=== PATIENT | male | born 1945 | race Caucasian/White ===

== ENCOUNTER 2020-01-29 10:57 | Inpatient (IN) | payer MEDICARE, SELFPAY ==
[2020-01-29] VITALS (7 sets, daily range): BP systolic 112–134; BP diastolic 61–93; PULSE 82–101; RESP 16–18; TEMP 36.6–37.1; O2SAT 86–99; BMI 24.3
--- NOTE | 2020-01-29 11:11 | XRR_ITS ---
PROCEDURE INFORMATION: Exam: XR Chest, 1 View Exam date and time: 01/29/2020 11:26 AM Age: 74 years old Clinical indication: Other: Weakness, nausea; Chest pain; Type not specified TECHNIQUE: Imaging protocol: XR of the chest Views: 1 view. COMPARISON: No relevant prior studies available. FINDINGS: Lungs: Both lungs are hyperinflated and hyperlucent suggesting COPD. No pneumonia or pulmonary edema. Pleural space: No pleural effusion or pneumothorax. Heart/Mediastinum: The cardiac silhouette is not enlarged. The mediastinal contours are normal. Bones/joints: Bilateral chronic rotator cuff tears. Degenerative changes present in both shoulders. XR/XR chest 1V portable [id number] IMPRESSION: COPD.
--- NOTE | 2020-01-29 11:12 | ECG_ITS ---
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 [facility].[email or web address]/NU/[id number] f
--- NOTE | 2020-01-29 11:27 | ED_ITS ---
HPI - Weakness General: Chief complaint: Weakness Stated complaint: N/V, WEAKNESS Time Seen by Provider: 01/29/20 11:00 History of Present Illness: HPI Narrative: This patient is a 74-year-old gentleman who presents today with weakness, nausea, diarrhea, dizziness for 3 to 4 days. He also has woken up during the night with sweats but has not checked his temperature. He has a chronic cough and shortness of breath which she says is been present for 15 years due to smoking. He denies any exposure to Covid and said that if I plan to do a Covid test with a Q-tip in the back of his head that he will refuse it. He also denies any other medical problems. He said he has been to the doctor in years because when you go to the doctor they just tell you all the things you are not supposed to do. He does have chronic joint pain from getting busted up in the past. He threw up once after eating some grapes. He said he did not eat anything else because he was so dizzy that he could not stand up to prepare anything. MD Complaint: generalized weakness, lack of energy and difficulty walking Onset (ago): day(s) (3 or 4) Duration: constant Location: generalized Migration: none Severity: moderate Associated symptoms: Reports chills, decreased appetite, diaphoresis, nausea, vomiting and other (Diarrhea, dizziness); Denies chest pain, easy bruising or headache(s) Review of Systems General: Reports: 10 or more systems reviewed and unremarkable except in HPI and below Const: Reports: chills and diaphoresis Eyes: Denies: change in vision ENMT: Denies: odynophagia Card: Denies: chest pain or swelling of feet/ankles Resp: Reports: dyspnea (Chronic due to smoking) and non-productive cough (Chronic due to smoking); Denies: productive cough GI: Reports: nausea, vomiting and diarrhea : Denies: flank pain Musc: Denies: neck pain or back pain Skin/Breast: Denies: rash Neuro: Denies: headache(s), numbness in extremities or weakness in extremities Zen/Lymph: Denies: easy bruising or easy bleeding PFS ED PFSH: Medical History (Updated 01/29/20 @ 16:50 by Leif Elam MD) COPD (chronic obstructive pulmonary disease) Poor dentition Smoking addiction Surgical History (Updated 01/29/20 @ 16:56 by Leif Elam MD) H/O wrist surgery Right --nerve injury following compression injury Family History Mother CHF (congestive heart failure) GI bleeding Father CHF (congestive heart failure) Other COPD (chronic obstructive pulmonary disease) Social History (Updated 01/29/20 @ 16:55 by Leif Elam MD) Smoking and tobacco status: current some day smoker cigarettes Packs smoked per day: 2 Years cigarettes smoked: 60 Alcohol intake: former Year of sobriety/quit date alcohol: 2015 Lives independently: Yes Current occupational status: employed Physical Exam Const: COMMON NORMALS: no acute distress, patient oriented x3, no limitations and alert GENERAL APPEARANCE: cooperative and comfortable HENMT: HEAD & SCALP: normal to inspection FACE & SINUS: normal facial exam Eye: GENERAL EYE: appearance normal, both eyes and all related structures Neck/C-Spine: COMMON NORMALS: supple, no meningeal signs and no JVD Chest: COMMONS NORMALS: normal inspection of the chest Resp: COMMON NORMALS: normal respiratory effort and No use of accessory muscles AUSCULTATION: diminished lung sounds Cardio: COMMON NORMALS: no JVD, regular rate, regular rhythm and No murmurs present (Cardio) RATE: regular rate RHYTHM: regular rhythm GI: COMMON NORMALS: Normal to inspection, nondistended, normoactive bowel sounds present, Soft to palpation and non-tender INSPECTION: Yes normal to inspection AUSCULTATION: Yes normoactive bowel sounds PALPATION: Yes Soft to palpation Back/Pelvis: COMMON NORMALS: thoracic and lumbar spine normal to inspection Extremity: COMMON NORMALS: normal to inspection Neuro: COMMON NORMALS: patient oriented x3, moves all extremities, no focal motor deficits and no sensory deficits noted SENSORIUM/ORIENTATION: Yes alert MENINGEAL SIGNS: Yes no meningeal signs Psych: COMMON NORMALS: mental status grossly normal, cooperative and normal affect Skin: COMMON NORMALS: no rashes or lesions noted and turgor normal GENERAL SKIN EXAM: no rashes or lesions noted and turgor normal Course ED course: This patient had been given Zofran and 500 mL of normal saline during transport and reported that he was feeling better already. He was sitting up on the side of the bed on my exam and did not have any dizziness. Reevaluation(s): Reevaluation #1: Based on the patient's symptoms and labs I am suspicious that he may have a bleeding ulcer. I discussed this with him and he has not seen any blood in the stool but he has been having profuse diarrhea. His daughter came in as a visitor while I was speaking with him about the results. She said he is pretty noncompliant in general as an outpatient. She also said that he never comes to the hospital and she notes that he must have been feeling extremely bad to have called the ambulance today. I had expected that he might tell me he refused to be admitted however when I suggested as a possibility he agreed. He said he still feeling extremely weak and does not feel like he could walk around and take care of himself. I think is reasonable to put him in his obsessed to recheck his hemoglobin and see if he is had a significant drop. He may or may not get endoscopy while in the hospital but he probably does need that at least as an outpatient. He also has evidence of UTI on his urine specimen and we will start some antibiotics to cover that. Vital Signs: Vital signs: Vital Signs Temperature 98.7 F 01/29/20 19:09 Pulse Rate 83 01/29/20 19:09 Respiratory Rate 18 01/29/20 19:09 Blood Pressure 134/71 01/29/20 19:09 Pulse Oximetry 98 01/29/20 19:09 MDM - Weakness Lab Data: Labs: Lab Results 01/29/20 01/29/20 01/29/20 Range/Units 11:19 11:19 11:19 WBC 12.8 H (4.0-10.0) 10^3/ uL RBC 3.14 L (4.1-5.3) 10^6/u L Hgb 9.8 L (11.7-16.6) g/dL Hct 31.1 L (42.0-52.0) % MCV 99.0 H (80-94) fL MCH 31.2 (28.0-34.0) pg MCHC 31.5 (30.0-36.0) g/dL RDW 12.8 (12.1-15.1) % Plt Count 223 (130-400) 10^3/c mm MPV 9.9 (7.4-10.4) fL Neut % (Auto) 85.1 % Lymph % (Auto) 9.5 % Saline % (Auto) 4.7 % Eos % (Auto) 0.1 % Baso % (Auto) 0.2 % Neut # (Auto) 10.88 H (1.8-7.7) 10^3/u L Lymph # (Auto) 1.2 (0.8-4.8) 10^3/u L Saline # (Auto) 0.6 (0.2-0.9) 10^3/u L Eos # (Auto) 0.0 (0.0-0.8) 10^3/u L Baso # (Auto) 0.0 (0.0-0.1) 10^3/u L Nucleated RBC % (a uto) 0 % Nucleated RBCs # 0.0 /100WBC PT 14.30 (12.1-14.9) SECO NDS INR 1.07 (0.8-1.2) D-Dimer <= 0.27 (0-0.59) ug/mIFE U Sodium 139 (136-145) mmol/L Potassium 4.5 (3.5-5.1) mmol/L Chloride 104 (98-107) mmol/L Carbon Dioxide 23 (22-29) mmol/L Anion Gap 16.5 (5-19) BUN 46 H (8-23) mg/dL Creatinine 1.0 (0.7-1.2) mg/dL GFR Calculation Not Reportable Glucose 164 H (65-115) mg/dL Calculated Osmolal ity 304 H (285-295) mOsm/k g Lactic Acid (0.5-2.2) mmol/L Calcium 8.4 L (8.5-10.5) mg/dL Magnesium 1.9 (1.7-2.3) mg/dL Total Bilirubin 0.2 (0.15-1.2) mg/dL AST 11 (0-40) U/L ALT 8 (0-41) U/L Alkaline Phosphata se 56 (40-130) IU/L Troponin T Baselin e (0-15) ng/L Troponin T 120 Min [place] (0-15) ng/L Delta Troponin T (0-10) ABS# C-Reactive Protein 3.8 (0.0-4.9) mg/L NT-Pro-B Natriuret Pep 81 (0-125) pg/mL Total Protein 5.5 L (6.6-8.7) g/dL Albumin 3.7 (3.5-5.2) g/dL Globulin 1.8 (1.3-4.6) g/dL Lipase 30 (13-60) U/L Procalcitonin 0.12 (0-0.5) ng/mL Urine Color (Yellow) Urine Appearance (CLEAR) Urine pH (5-7) Ur Specific Gravit y (1.005-1.030) Urine Protein (Negative) Urine Glucose (UA) (Normal) Urine Ketones (Negative) Urine Blood (Negative) Urine Nitrate (Negative) Urine Bilirubin (Negative) Urine Urobilinogen (Negative) mg/dL Ur Leukocyte Elizabeth ase (Negative) Urine RBC (0-2) /hpf Urine WBC (0-5) /hpf Ur Squamous Epith Cells (0-5) /hpf Amorphous Sediment Urine Bacteria (NONE) /hpf H. pylori IgG Anti body (Negative) SARS-CoV-2 Ag (Rap id) (Negative) 01/29/20 01/29/20 01/29/20 Range/Units 11:19 11:19 11:19 WBC (4.0-10.0) 10^3/ uL RBC (4.1-5.3) 10^6/u L Hgb (11.7-16.6) g/dL Hct (42.0-52.0) % MCV (80-94) fL MCH (28.0-34.0) pg MCHC (30.0-36.0) g/dL RDW (12.1-15.1) % Plt Count (130-400) 10^3/c mm MPV (7.4-10.4) fL Neut % (Auto) % Lymph % (Auto) % Saline % (Auto) % Eos % (Auto) % Baso % (Auto) % Neut # (Auto) (1.8-7.7) 10^3/u L Lymph # (Auto) (0.8-4.8) 10^3/u L Saline # (Auto) (0.2-0.9) 10^3/u L Eos # (Auto) (0.0-0.8) 10^3/u L Baso # (Auto) (0.0-0.1) 10^3/u L Nucleated RBC % (a uto) % Nucleated RBCs # /100WBC PT (12.1-14.9) SECO NDS INR (0.8-1.2) D-Dimer (0-0.59) ug/mIFE U Sodium (136-145) mmol/L Potassium (3.5-5.1) mmol/L Chloride (98-107) mmol/L Carbon Dioxide (22-29) mmol/L Anion Gap (5-19) BUN (8-23) mg/dL Creatinine (0.7-1.2) mg/dL GFR Calculation Glucose (65-115) mg/dL Calculated Osmolal ity (285-295) mOsm/k g Lactic Acid 1.8 (0.5-2.2) mmol/L Calcium (8.5-10.5) mg/dL Magnesium (1.7-2.3) mg/dL Total Bilirubin (0.15-1.2) mg/dL AST (0-40) U/L ALT (0-41) U/L Alkaline Phosphata se (40-130) IU/L Troponin T Baselin e 8 (0-15) ng/L Troponin T 120 Min [place] (0-15) ng/L Delta Troponin T (0-10) ABS# C-Reactive Protein (0.0-4.9) mg/L NT-Pro-B Natriuret Pep (0-125) pg/mL Total Protein (6.6-8.7) g/dL Albumin (3.5-5.2) g/dL Globulin (1.3-4.6) g/dL Lipase (13-60) U/L Procalcitonin (0-0.5) ng/mL Urine Color (Yellow) Urine Appearance (CLEAR) Urine pH (5-7) Ur Specific Gravit y (1.005-1.030) Urine Protein (Negative) Urine Glucose (UA) (Normal) Urine Ketones (Negative) Urine Blood (Negative) Urine Nitrate (Negative) Urine Bilirubin (Negative) Urine Urobilinogen (Negative) mg/dL Ur Leukocyte Elizabeth ase (Negative) Urine RBC (0-2) /hpf Urine WBC (0-5) /hpf Ur Squamous Epith Cells (0-5) /hpf Amorphous Sediment Urine Bacteria (NONE) /hpf H. pylori IgG Anti body Negative (Negative) SARS-CoV-2 Ag (Rap id) (Negative) 01/29/20 01/29/20 01/29/20 Range/Units 11:30 11:51 13:10 WBC (4.0-10.0) 10^3/ uL RBC (4.1-5.3) 10^6/u L Hgb (11.7-16.6) g/dL Hct (42.0-52.0) % MCV (80-94) fL MCH (28.0-34.0) pg MCHC (30.0-36.0) g/dL RDW (12.1-15.1) % Plt Count (130-400) 10^3/c mm MPV (7.4-10.4) fL Neut % (Auto) % Lymph % (Auto) % Saline % (Auto) % Eos % (Auto) % Baso % (Auto) % Neut # (Auto) (1.8-7.7) 10^3/u L Lymph # (Auto) (0.8-4.8) 10^3/u L Saline # (Auto) (0.2-0.9) 10^3/u L Eos # (Auto) (0.0-0.8) 10^3/u L Baso # (Auto) (0.0-0.1) 10^3/u L Nucleated RBC % (a uto) % Nucleated RBCs # /100WBC PT (12.1-14.9) SECO NDS INR (0.8-1.2) D-Dimer (0-0.59) ug/mIFE U Sodium (136-145) mmol/L Potassium (3.5-5.1) mmol/L Chloride (98-107) mmol/L Carbon Dioxide (22-29) mmol/L Anion Gap (5-19) BUN (8-23) mg/dL Creatinine (0.7-1.2) mg/dL GFR Calculation Glucose (65-115) mg/dL Calculated Osmolal ity (285-295) mOsm/k g Lactic Acid (0.5-2.2) mmol/L Calcium (8.5-10.5) mg/dL Magnesium (1.7-2.3) mg/dL Total Bilirubin (0.15-1.2) mg/dL AST (0-40) U/L ALT (0-41) U/L Alkaline Phosphata se (40-130) IU/L Troponin T Baselin e (0-15) ng/L Troponin T 120 Min [place] 9.16 (0-15) ng/L Delta Troponin T 1.16 (0-10) ABS# C-Reactive Protein (0.0-4.9) mg/L NT-Pro-B Natriuret Pep (0-125) pg/mL Total Protein (6.6-8.7) g/dL Albumin (3.5-5.2) g/dL Globulin (1.3-4.6) g/dL Lipase (13-60) U/L Procalcitonin (0-0.5) ng/mL Urine Color Yellow (Yellow) Urine Appearance Clear (CLEAR) Urine pH 5 (5-7) Ur Specific Gravit y 1.020 (1.005-1.030) Urine Protein Neg (Negative) Urine Glucose (UA) Norm (Normal) Urine Ketones Negative (Negative) Urine Blood Neg (Negative) Urine Nitrate Negative (Negative) Urine Bilirubin 1+ H (Negative) Urine Urobilinogen Norm (Negative) mg/dL Ur Leukocyte Elizabeth ase 2+ H (Negative) Urine RBC None (0-2) /hpf Urine WBC 15-25 H (0-5) /hpf Ur Squamous Epith Cells 0-4 H (0-5) /hpf Amorphous Sediment Not Reportable Urine Bacteria 1+ H (NONE) /hpf H. pylori IgG Anti body (Negative) SARS-CoV-2 Ag (Rap id) Negative (Negative) Discharge Plan Discharge Patient Disposition: Placed in Observation Admit Provider: Manpreet Beatty Clinical Impression: Acute UTI, Acute upper gastrointestinal bleeding Anemia Qualifiers: Anemia type: unspecified type Qualified Code(s): D64.9 - Anemia, unspecified Coding Level of Care Code ED Staff Physical Therapy Assistant for [facility] Fwd Exam Comprehensive
[2020-01-29 11:34] LABS: Basophils % 0.2 %; Eosinophils % 0.1 %; Hematocrit 31.1 % (42.0-52.0); Hemoglobin 9.8 g/dL (11.7-16.6); Lymphocytes # 1.2 10^3/uL (0.8-4.8); Lymphocytes % 9.5 %; Mean Corpuscular HGB Conc 31.5 g/dL (30.0-36.0); Mean Corpuscular Hemoglobin 31.2 pg (28.0-34.0); Mean Platelet Volume 9.9 fL (7.4-10.4); Monocytes # 0.6 10^3/uL (0.2-0.9); Monocytes % 4.7 %; Neutrophils # 10.88 10^3/uL (1.8-7.7); Neutrophils % 85.1 %; Nucleated Red Blood Cells % 0 %; Platelet Count 223 10^3/cmm (130-400); Red Blood Count 3.14 10^6/uL (4.1-5.3); Red Cell Distribution Width 12.8 % (12.1-15.1); White Blood Count 12.8 10^3/uL (4.0-10.0)
[2020-01-29] MEDS: sodium chloride 0.9% 1,000 ML 999 ML IV (11:40)
[2020-01-29 11:54] LABS: INR 1.07 (0.8-1.2)
[2020-01-29 11:57] LABS: D Dimer <= 0.27 ug/mIFEU (0-0.59)
[2020-01-29 12:01] LABS: Troponin(5th) Baseline 8 ng/L (0-15)
[2020-01-29 12:03] LABS: SARS Covid-2 Antigen Negative (Negative)
[2020-01-29 12:03] LABS: Lactic Sepsis W/Reflex 1.8 mmol/L (0.5-2.2)
[2020-01-29 12:08] LABS: NT Pro B Type Natriuretic Pept 81 pg/mL (0-125); Procalcitonin 0.12 ng/mL (0-0.5)
[2020-01-29 12:15] LABS: Urine Appearance Clear (CLEAR); Urine Color Yellow (Yellow); pH Urine 5 (5-7)
[2020-01-29 12:16] LABS: Add Urine Microscopic? YES; Bilirubin Urine 1+ (Negative); Blood Urine Neg (Negative); Glucose Urine UA Norm (Normal); Ketones Urine Negative (Negative); Leukocyte Esterase Urine 2+ (Negative); Nitrate Urine Negative (Negative); Protein Urine Neg (Negative); Urobilinogen Urine Norm (Negative)
[2020-01-29 12:17] LABS: Add Urine Culture? Yes; Bacteria Urine 1+ /hpf; Squamous Epithelial Cell Urine 0-4 /hpf (0-5); WBC Urine 15-25 /hpf (0-5)
[2020-01-29 12:20] LABS: Alanine Aminotransferase 8 U/L (0-41); Albumin Level 3.7 g/dL (3.5-5.2); Alkaline Phosphatase 56 IU/L (40-130); Anion Gap 16.5 (5-19); Aspartate Amino Transferase 11 U/L (0-40); Blood Urea Nitrogen 46 mg/dL (8-23); C Reactive Protein 3.8 mg/L (0.0-4.9); Calcium 8.4 mg/dL (8.5-10.5); Carbon Dioxide 23 mmol/L (22-29); Chloride 104 mmol/L (98-107); Creatinine Clr Calc Pharmacy 77.9742; Globulin 1.8 g/dL (1.3-4.6); Glucose 164 mg/dL (65-115); Lipase 30 U/L (13-60); Magnesium 1.9 mg/dL (1.7-2.3); Osmolality Calculated 304 mOsm/kg (285-295); Potassium 4.5 mmol/L (3.5-5.1); Sodium 139 mmol/L (136-145); Total Bilirubin 0.2 mg/dL (0.15-1.2); Total Protein 5.5 g/dL (6.6-8.7)
--- NOTE | 2020-01-29 13:12 | ECG_ITS ---
[facility] Test Date: 2020-01-29 Pat Name: Carlos Bernabe Department: Room: 255 Gender: Male Audience Coordinator: : 1945 Requested By: Pati Wiggins Order Number: [id number] Reading MD: TRAN COOLEY Measurements Intervals [place] Rate: 72 P: 90 CA: 174 QRS: 77 QRSD: 73 T: 26 QT: 356 QTc: 391 Interpretive Statements SINUS RHYTHM WITH OCCASIONAL SUPRAVENTRICULAR PREMATURE COMPLEXES MODERATE T-WAVE ABNORMALITY, CONSIDER INFERIOR ISCHEMIA [-0.1+ mV T WAVE IN II/aVF] Compared to ECG 01/29/2020 11:23:52 Possible ischemia now present T-wave abnormality still present Electronically Signed On 01-29-2020 17:32:31 STUDENT FINANCIAL AID MANAGER by TRAN COOLEY [id number]
[2020-01-29] MEDS: pantoprazole 40 mg SDV 80 MG IVP (13:33)
[2020-01-29] MEDS: cefTRIAXone 1,000 MG in sodium chloride 0.9% (plus) 50 ML 100 MG IV (13:33)
[2020-01-29] MEDS: nicotine 21 mg Patch 1 PATCH TRANSDERMA (13:33)
[2020-01-29 13:37] LABS: Troponin 5 2HR 9.16 ng/L (0-15); Troponin 5 2HR Delta 1.16 ABS# (0-10)
--- NOTE | 2020-01-29 14:32 | PC.NURSE ---
pt report called to Sondra VIERA in SBAR format.
--- NOTE | 2020-01-29 14:49 | P.HP_ITS ---
Providers/Chief Complaint Admitting Physician: Manpreet Beatty Chief Complaint: N/V, WEAKNESS History of Present Illness Carlos Bernabe is a pleasant 74 year old gentleman who does not have much PMH, but also has not seen a doctor in over 20 years, presented to ER feeling weak, dizzy on standing up after about 3 days of diarrhea which on questioning he reports was black. He reports one episode of vomiting after eating some grapes. He states he was feeling malaise and feeling cold/chills during that time. He ever having upper or lower endoscopy. He is a long-term smoker, 2 packs/day, and reportedly was smoking for the last 60 years. In ER he is noted afebrile, with minimal leukocytosis, also with new anemia, hemoglobin 9.8, with elevated BUN, normal creatinine. Incidentally noted UTI. He denies fever at home. A week ago had a swollen cheek on the R side with a painful tooth. This is resolving. Denies taking any antibiotics. Denies fever, sore throat, headache, cough or shortness of breath other than chronic from smoking. Rapid covid test in ER is negative. He denies ASA use. Does not take NSAIDs. Took tylenol for pain for his tooth. He does state has history of easy bruising, although liver parameters and INR are normal. He states that today is the first time he has had no diarrhea. Review of Systems Const: Reports: other (dizziness); Denies: fever(s), chills, body aches or malaise Eyes: Denies: change in vision or eye redness ENMT: Denies: throat pain, oral sores or ear or mastoid pain Card: Denies: chest pain, edema, pre-syncope or dyspnea on exertion Resp: Denies: dyspnea, productive cough, change in phlegm color or hemoptysis GI: Reports: nausea, diarrhea and melena; Denies: abdominal pain, vomiting, constipation or hematochezia : Denies: flank pain, difficulty urinating, urinary frequency or hematuria Musc: Denies: back pain, joint swelling or joint redness Skin/Breast: Denies: rash, sores or new lesions Neuro: Denies: headache(s), numbness in extremities, weakness in extremities, dizziness, confusion or seizure-like activity Endo: Denies: polyuria or polydipsia Zen/Lymph: Denies: easy bleeding or purpura All/Imm: Denies: urticaria, throat swelling or tongue swelling Medications/Allergies Home Medications Medication Instructions Recorded Confirmed Last Taken Type acetaminophen [Tylenol Extra 1,000 mg PO PRN 01/29/20 01/29/20 01/29/20 History Strength] guaifenesin [Mucinex] 600 - 1,200 mg PO PRN 01/29/20 01/29/20 01/29/20 History Allergies Allergy/AdvReac Type Severity Reaction Status Date / Time No Known Allergies Allergy Verified 01/29/20 13:27 PFSH Acute PFSH: Medical History Poor dentition Smoking addiction Surgical History H/O wrist surgery Family History Mother CHF (congestive heart failure) GI bleeding Father CHF (congestive heart failure) Other COPD (chronic obstructive pulmonary disease) Social History Smoking and tobacco status: current some day smoker cigarettes Packs smoked per day: 2 Years cigarettes smoked: 60 Alcohol intake: former Lives independently: Yes Current occupational status: employed Vitals/I&O/Wt Last Vital Signs Temp 97.9 F 01/29/20 10:58 Pulse 87 01/29/20 14:09 Resp 18 01/29/20 14:09 BP 116/82 01/29/20 14:09 Pulse Ox 99 01/29/20 14:09 Weight last 48 hrs Weight 86.183 kg Physical Exam Const: COMMON NORMALS: no acute distress and patient oriented x3 HENMT: COMMON NORMALS: oropharynx normal Neck/C-Spine: COMMON NORMALS: no JVD Resp: COMMON NORMALS: normal respiratory effort and clear to auscultation bilaterally AUSCULTATION: clear to auscultation bilaterally Cardio: COMMON NORMALS: no JVD, regular rhythm, S1 normal heart sound present, S2 normal heart sound present and No murmurs present (Cardio) RHYTHM: regular rhythm HEART SOUNDS: S1 normal heart sound present and S2 normal heart sound present GI: COMMON NORMALS: Normal to inspection, nondistended, normoactive bowel sounds present, Soft to palpation and non-tender PALPATION: Yes Soft to palpation Extremity: COMMON NORMALS: no joint enlargement and no pedal edema Neuro: COMMON NORMALS: patient oriented x3 and moves all extremities Skin: COMMON NORMALS: no rashes or lesions noted GENERAL SKIN EXAM: no rashes or lesions noted Data : 01/29/20 11:19 01/29/20 11:19 A&P Assessment and plan (1) Anemia: Possible acute blood loss anemia, with melanotic stools. Recheck hemoglobin. As below. Status: Acute Qualifiers: Anemia type: unspecified type Qualified Code(s): D64.9 - Anemia, unspecified (2) Acute upper gastrointestinal bleeding: Reported 3 days diarrhea. However, melanotic stools. Some nausea. Orthostatic symptoms. He is afebrile. Does have minimal leukocytosis, although did have one episode of vomiting. At this time cannot entirely rule out gastroenteritis or colitis, however, suspicion is more so for GI bleeding with diarrhea secondary to cathartic effect. Discussed concern with him his daughter regarding longstanding smoking history, and risk of cancer. Daughter is concerned that if he is discharged from the hospital that he will not follow-up as he has not seen a doctor probably in about 20 years. Previously also reportedly had finger reattachment surgery left hand after severed digits check to be done in office due to otherwise poor compliance as per report by the patient's daughter. We will monitor hemoglobin. Start PPI. He does not take NSAIDs or aspirin. Does have easy bruising. INR is normal, and liver parameters are normal. Does not drink alcohol. He is agreeable for upper and lower endoscopy if this were needed. Appreciate surgical consultation. Collect stool studies if having further stools. Check H. pylori. Status: Acute (3) Acute UTI: Rocephin. Follow-up urine culture. He does have leukocytosis, heart rate for the most part normal, although I do see 101 currently. Will monitor. At this time not suspected to have sepsis. Will check ultrasound for any obstruction. Status: Acute (4) Smoking addiction: Discussed multiple risks with continued smoking. We discussed smoking cessation for about 4 minutes with both him and his daughter. He is not ready t o quit or even to consider quitting. Status: Acute (5) Poor dentition: He is making appointment with a dentist. Had what sounds like peritonitis a week ago which appears to be resolving currently. Status: Acute (6) Diarrhea: As above. Status: Acute Attestations Medical Necessity Statement*: Place in observation. 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
--- NOTE | 2020-01-29 15:18 | PC.NURSE ---
Pts nurse was i there
--- NOTE | 2020-01-29 15:27 | US_ITS ---
WS: [id number] ULTRASOUND RENAL TECHNIQUE: Ultrasound examination of both kidneys. CLINICAL INFORMATION: check for any urinary obnstruction COMPARISON: None. FINDINGS: RIGHT: Right kidney is normal in size and appearance. Echogenicity: Normal Hydronephrosis: None. Perinephric fluid: None. Right kidney measures: 8.9 cm x 4.7 cm x 4.7 cm. LEFT: Left kidney is normal in size and appearance. Echogenicity: Normal. Hydronephrosis: None. Perinephric fluid: None. Left kidney measures: 10.3cm x 4.9 cm x 5.8 cm. Normal visualized aorta. Bladder is decompressed. US/US renal BI* [id number] IMPRESSION: Normal renal ultrasound
[2020-01-29 16:16] LABS: H. Pylori IgG Antibody Negative (Negative)
--- NOTE | 2020-01-29 16:50 | PM.CONSULT ---
Providers/Reason For Consult Consulting Physican/Specialty*: General Surgery Leif Elam MD Reason for Consult*: Melena, anemia. Attending Physician: Manpreet Beatty History of Present Illness History of Present Illness Carlos Bernabe is a 74 year old male who says he began getting sick about 36 hours ago. He describes some nausea, dizziness and weakness associated with some loose stool. He says his stools have been very black ever since he started having his other symptoms. He was not having any significant abdominal pain. He eventually presented to the emergency department and was found to be somewhat anemic. Given his melanotic appearing stool, Dr. Beatty asked me to talk to him about endoscopy, which she has never had before. He denies any known family history of upper or lower GI neoplasia, but says that his mother had a history of bad ulcers. He has never been diagnosed with ulcer disease in the past, but freely admits he has not seen a physician for over 20 years. He denies any regular NSAID use. He does drink quite a bit of caffeine and smokes a lot of cigarettes. Review of Systems General: Reports: 10 or more systems reviewed and unremarkable except in HPI and below Const: Denies: fever(s) ENMT: Reports: other ( Bad teeth ) GI: Reports: nausea, vomiting (X1) and melena; Denies: abdominal pain or hematemesis Neuro: Reports: dizziness Meds/Allergies Home Medications and Allergies Home Medications Medication Instructions Recorded Confirmed Last Taken Type acetaminophen [Tylenol Extra 1,000 mg PO PRN 01/29/20 01/29/20 01/29/20 History Strength] guaifenesin [Mucinex] 600 - 1,200 mg PO PRN 01/29/20 01/29/20 01/29/20 History Allergies Allergy/AdvReac Type Severity Reaction Status Date / Time No Known Allergies Allergy Verified 01/29/20 13:27 PFSH Acute PFSH: Medical History (Updated 01/29/20 @ 16:50 by Leif Elam MD) COPD (chronic obstructive pulmonary disease) Poor dentition Smoking addiction Surgical History (Updated 01/29/20 @ 16:56 by Leif Elam MD) H/O wrist surgery Right --nerve injury following compression injury Family History Mother CHF (congestive heart failure) GI bleeding Father CHF (congestive heart failure) Other COPD (chronic obstructive pulmonary disease) Social History (Updated 01/29/20 @ 16:55 by Leif Elam MD) Smoking and tobacco status: current some day smoker cigarettes Packs smoked per day: 2 Years cigarettes smoked: 60 Alcohol intake: former Year of sobriety/quit date alcohol: 2015 Lives independently: Yes Current occupational status: employed Vitals/I&O/Wt Last Vital Signs Temp 97.8 F 01/29/20 16:00 Pulse 101 H 01/29/20 16:00 Resp 16 01/29/20 16:00 BP 133/61 01/29/20 16:00 Pulse Ox 93 01/29/20 16:00 Weight last 48 hrs Weight 190 lb Physical Exam Narrative: EXAM NARRATIVE: The patient was encountered in his hospital room. He does not appear to be in any distress. The pupils are equal. The dentition is poor. The neck reveals no obvious bruits. The lungs are clear anteriorly. The heart is regular. The abdomen reveals some bowel sounds and is soft with no appreciable tenderness. No obvious masses are palpated. The extremities reveal no edema. Neurologically the patient appears to be grossly intact. A&P Assessment and plan (1) Melena: Status: Acute (2) Anemia: I have discussed the patient's melanotic stool and his anemia with him. We discussed upper and lower GI sources of bleeding. After discussing an EGD, he says he would be willing to proceed with that. I will arrange for an EGD tomorrow morning. Status: Acute Qualifiers: Anemia type: unspecified type Qualified Code(s): D64.9 - Anemia, unspecified Consult Attestations Medical Necessity Statement: See admitting service's notation. Coding Level of Care Code Acute Supervisor Telephone Answering Service for [facility] Fwd Diagnoses Melena K92.1 Anemia D64.9 Anemia type: unspecified type
--- NOTE | 2020-01-29 16:58 | PC.RESP ---
Smoking Cessation and Pulmonary Rehab information sent to patient.
[2020-01-29 17:21] LABS: Hemoglobin 8.5 g/dL (11.7-16.6)
[2020-01-29 18:05] LABS: Troponin 5 6HR 9.98 ng/L (0-15); Troponin 5 6HR Delta 1.98 ng/L (0-12)
[2020-01-29] MEDS: pantoprazole 40 mg SDV IVP (21:50)
[2020-01-30] VITALS (16 sets, daily range): BP systolic 90–143; BP diastolic 48–78; PULSE 63–83; RESP 14–20; TEMP 36.3–37.1; O2SAT 93–100
[2020-01-30 05:26] LABS: Basophils # 0.1 10^3/uL (0.0-0.1); Basophils % 0.5 %; Eosinophils # 0.2 10^3/uL (0.0-0.8); Eosinophils % 1.7 %; Hematocrit 23.2 % (42.0-52.0); Hemoglobin 7.5 g/dL (11.7-16.6); Lymphocytes # 1.8 10^3/uL (0.8-4.8); Lymphocytes % 18.3 %; Mean Corpuscular HGB Conc 32.3 g/dL (30.0-36.0); Mean Corpuscular Hemoglobin 31.1 pg (28.0-34.0); Mean Corpuscular Volume 96.3 fL (80-94); Mean Platelet Volume 9.7 fL (7.4-10.4); Monocytes # 0.9 10^3/uL (0.2-0.9); Monocytes % 8.6 %; Neutrophils # 6.97 10^3/uL (1.8-7.7); Neutrophils % 70.5 %; Nucleated Red Blood Cells % 0 %; Platelet Count 163 10^3/cmm (130-400); Red Blood Count 2.41 10^6/uL (4.1-5.3); Red Cell Distribution Width 12.9 % (12.1-15.1); White Blood Count 9.9 10^3/uL (4.0-10.0)
[2020-01-30 06:01] LABS: Alanine Aminotransferase 6 U/L (0-41); Albumin Level 3.2 g/dL (3.5-5.2); Alkaline Phosphatase 47 IU/L (40-130); Anion Gap 13.2 (5-19); Aspartate Amino Transferase 10 U/L (0-40); Blood Urea Nitrogen 30 mg/dL (8-23); Calcium 8.2 mg/dL (8.5-10.5); Carbon Dioxide 27 mmol/L (22-29); Chloride 104 mmol/L (98-107); Creatinine Clr Calc Pharmacy 77.9742; Globulin 1.8 g/dL (1.3-4.6); Glucose 122 mg/dL (65-115); Osmolality Calculated 297 mOsm/kg (285-295); Potassium 4.2 mmol/L (3.5-5.1); Sodium 140 mmol/L (136-145); Total Bilirubin 0.3 mg/dL (0.15-1.2)
--- NOTE | 2020-01-30 06:20 | PC.NURSE ---
SHIFT SUMMARY Did not sleep much tonight. No c/o offered. No BM's this shift. NPO after midnight for EGD this am and GI Lab staff just here to take to OP via wheelchair.
[2020-01-30] MEDS: sodium chloride 0.9% 1,000 ML 30 ML IV (06:23)
--- NOTE | 2020-01-30 06:40 | ANES.PREANE2 ---
Pre-Anesthetic Assessment Pre-Anesthetic Assessment: Height/Weight: Height 1.88 m Weight 86.183 kg Temp Pulse Resp BP Pulse Ox 98.6 F 83 18 143/69 100 01/30/20 06:18 01/30/20 06:18 01/30/20 06:18 01/30/20 06:18 01/30/20 06:18 Preop Diagnosis: GI bleed Proposed Procedure: Operation Date: 01/30/20 07:30 Proposed Procedures p EGD(Not Applicable) - Leif Elam MD Familial anesthetic complications: None Was Beta Nayeli taken within 24 hours: N/A Last intake: NPO > 8 hrs Social: Social History: Tobacco, No alcohol and No tobacco Exam: Pre-Anes Outpt Exam: alert, oriented x 3, clear to auscultation bilaterally and regular rate & rhythm Additional Exam Findings (including area of procedure): coarse breath sounds Airway: Cervical ROM: WNL MP: 3 Dentition: Other (very poor dentition - multiple rotting teeth, he pulled one himself on wednesday) Pulmonary: Pulmonary: COPD CV/HEM: CV/HEM: Anemia (acute) Comments: METS > 4, 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 Anesthetic Plan: ASA status: 3 Anesthesia: MAC Other: Will order prbcs 1 unit Risk of > 500 ml blood loss (7ml/kg in children): No Meds/Allergies Current Medications: Current Medications Generic Name Dose Route Start Last Admin Trade Name Freq PRN Reason Stop Dose Admin Sodium Chloride 1,000 mls @ 30 ml s/hr 01/30/20 06:15 01/30/20 06:23 Sodium Chloride 0.9% IV 01/31/20 06:14 30 mls/hr .Q24H JOVAN Administration Pantoprazole Sodiu m 40 mg 01/29/20 22:00 01/29/20 21:50 Pantoprazole 40 Mg Sdv IVP 40 mg Q12H JOVAN Administration PFSH Anesthesia PFSH: Medical History (Updated 01/29/20 @ 16:50 by Leif Elam MD) COPD (chronic obstructive pulmonary disease) Poor dentition Smoking addiction Surgical History (Updated 01/29/20 @ 16:56 by Leif Elam MD) H/O wrist surgery Right --nerve injury following compression injury Family History Mother CHF (congestive heart failure) GI bleeding Father CHF (congestive heart failure) Other COPD (chronic obstructive pulmonary disease) Social History (Updated 01/29/20 @ 16:55 by Leif Elam MD) Smoking and tobacco status: current some day smoker cigarettes Packs smoked per day: 2 Years cigarettes smoked: 60 Alcohol intake: former Year of sobriety/quit date alcohol: 2015 Lives independently: Yes Current occupational status: employed Data Anesthesia CBC & Chem 7: 01/30/20 04:39 01/30/20 04:39 Other Labs: Laboratory Results - last 48 hr 01/29/20 01/29/20 01/29/20 11:19 11:19 11:19 WBC 12.8 H RBC 3.14 L Hgb 9.8 L Hct 31.1 L MCV 99.0 H MCH 31.2 MCHC 31.5 RDW 12.8 Plt Count 223 MPV 9.9 Neut % (Auto) 85.1 Lymph % (Auto) 9.5 [place] % (Auto) 4.7 Eos % (Auto) 0.1 Baso % (Auto) 0.2 Neut # (Auto) 10.88 H Lymph # (Auto) 1.2 [place] # (Auto) 0.6 Eos # (Auto) 0.0 Baso # (Auto) 0.0 Nucleated RBC % (auto) 0 Nucleated RBCs # 0.0 PT 14.30 INR 1.07 D-Dimer <= 0.27 Sodium 139 Potassium 4.5 Chloride 104 Carbon Dioxide 23 Anion Gap 16.5 BUN 46 H Creatinine 1.0 GFR Calculation Not Reportable Glucose 164 H Calculated Osmolality 304 H Lactic Acid Calcium 8.4 L Magnesium 1.9 Total Bilirubin 0.2 AST 11 ALT 8 Alkaline Phosphatase 56 Troponin T Baseline Troponin T 120 Minute Delta Troponin T Troponin T Hi Sens 6Hr Troponin T Hi Sens 6Hr Delta C-Reactive Protein 3.8 NT-Pro-B Natriuret Pep 81 Total Protein 5.5 L Albumin 3.7 Globulin 1.8 Lipase 30 Procalcitonin 0.12 Urine Color Urine Appearance Urine pH Ur Specific [place] Urine Protein Urine Glucose (UA) Urine Ketones Urine Blood Urine Nitrate Urine Bilirubin Urine Urobilinogen Ur Leukocyte Esterase Urine RBC Urine WBC Ur Squamous Epith Cells Amorphous Sediment Urine Bacteria H. pylori IgG Antibody SARS-CoV-2 Ag (Rapid) 01/29/20 01/29/20 01/29/20 11:19 11:19 11:19 WBC RBC Hgb Hct MCV MCH MCHC RDW Plt Count MPV Neut % (Auto) Lymph % (Auto) [place] % (Auto) Eos % (Auto) Baso % (Auto) Neut # (Auto) Lymph # (Auto) [place] # (Auto) Eos # (Auto) Baso # (Auto) Nucleated RBC % (auto) Nucleated RBCs # PT INR D-Dimer Sodium Potassium Chloride Carbon Dioxide Anion Gap BUN Creatinine GFR Calculation Glucose Calculated Osmolality Lactic Acid 1.8 Calcium Magnesium Total Bilirubin AST ALT Alkaline Phosphatase Troponin T Baseline 8 Troponin T 120 Minute Delta Troponin T Troponin T Hi Sens 6Hr Troponin T Hi Sens 6Hr Delta C-Reactive Protein NT-Pro-B Natriuret Pep Total Protein Albumin Globulin Lipase Procalcitonin Urine Color Urine Appearance Urine pH Ur Specific [place] Urine Protein Urine Glucose (UA) Urine Ketones Urine Blood Urine Nitrate Urine Bilirubin Urine Urobilinogen Ur Leukocyte Esterase Urine RBC Urine WBC Ur Squamous Epith Cells Amorphous Sediment Urine Bacteria H. pylori IgG Antibody Negative SARS-CoV-2 Ag (Rapid) 01/29/20 01/29/20 01/29/20 11:30 11:51 13:10 WBC RBC Hgb Hct MCV MCH MCHC RDW Plt Count MPV Neut % (Auto) Lymph % (Auto) [place] % (Auto) Eos % (Auto) Baso % (Auto) Neut # (Auto) Lymph # (Auto) [place] # (Auto) Eos # (Auto) Baso # (Auto) Nucleated RBC % (auto) Nucleated RBCs # PT INR D-Dimer Sodium Potassium Chloride Carbon Dioxide Anion Gap BUN Creatinine GFR Calculation Glucose Calculated Osmolality Lactic Acid Calcium Magnesium Total Bilirubin AST ALT Alkaline Phosphatase Troponin T Baseline Troponin T 120 Minute 9.16 Delta Troponin T 1.16 Troponin T Hi Sens 6Hr Troponin T Hi Sens 6Hr Delta C-Reactive Protein NT-Pro-B Natriuret Pep Total Protein Albumin Globulin Lipase Procalcitonin Urine Color Yellow Urine Appearance Clear Urine pH 5 Ur Specific [place] 1.020 Urine Protein Neg Urine Glucose (UA) Norm Urine Ketones Negative Urine Blood Neg Urine Nitrate Negative Urine Bilirubin 1+ H Urine Urobilinogen Norm Ur Leukocyte Esterase 2+ H Urine RBC None Urine WBC 15-25 H Ur Squamous Epith Cells 0-4 H Amorphous Sediment Not Reportable Urine Bacteria 1+ H H. pylori IgG Antibody SARS-CoV-2 Ag (Rapid) Negative 01/29/20 01/29/20 01/30/20 17:00 17:00 04:39 WBC 9.9 RBC 2.41 L Hgb 8.5 L 7.5 L Hct 23.2 L MCV 96.3 H MCH 31.1 MCHC 32.3 RDW 12.9 Plt Count 163 MPV 9.7 Neut % (Auto) 70.5 Lymph % (Auto) 18.3 [place] % (Auto) 8.6 Eos % (Auto) 1.7 Baso % (Auto) 0.5 Neut # (Auto) 6.97 Lymph # (Auto) 1.8 [place] # (Auto) 0.9 Eos # (Auto) 0.2 Baso # (Auto) 0.1 Nucleated RBC % (auto) 0 Nucleated RBCs # 0.0 PT INR D-Dimer Sodium Potassium Chloride Carbon Dioxide Anion Gap BUN Creatinine GFR Calculation Glucose Calculated Osmolality Lactic Acid Calcium Magnesium Total Bilirubin AST ALT Alkaline Phosphatase Troponin T Baseline Troponin T 120 Minute Delta Troponin T Troponin T Hi Sens 6Hr 9.98 Troponin T Hi Sens 6Hr Delta 1.98 C-Reactive Protein NT-Pro-B Natriuret Pep Total Protein Albumin Globulin Lipase Procalcitonin Urine Color Urine Appearance Urine pH Ur Specific [place] Urine Protein Urine Glucose (UA) Urine Ketones Urine Blood Urine Nitrate Urine Bilirubin Urine Urobilinogen Ur Leukocyte Esterase Urine RBC Urine WBC Ur Squamous Epith Cells Amorphous Sediment Urine Bacteria H. pylori IgG Antibody SARS-CoV-2 Ag (Rapid) 01/30/20 04:39 WBC RBC Hgb Hct MCV MCH MCHC RDW Plt Count MPV Neut % (Auto) Lymph % (Auto) [place] % (Auto) Eos % (Auto) Baso % (Auto) Neut # (Auto) Lymph # (Auto) [place] # (Auto) Eos # (Auto) Baso # (Auto) Nucleated RBC % (auto) Nucleated RBCs # PT INR D-Dimer Sodium 140 Potassium 4.2 Chloride 104 Carbon Dioxide 27 Anion Gap 13.2 BUN 30 H Creatinine 1.0 GFR Calculation Not Reportable Glucose 122 H Calculated Osmolality 297 H Lactic Acid Calcium 8.2 L Magnesium Total Bilirubin 0.3 AST 10 ALT 6 Alkaline Phosphatase 47 Troponin T Baseline Troponin T 120 Minute Delta Troponin T Troponin T Hi Sens 6Hr Troponin T Hi Sens 6Hr Delta C-Reactive Protein NT-Pro-B Natriuret Pep Total Protein 5.0 L Albumin 3.2 L Globulin 1.8 Lipase Procalcitonin Urine Color Urine Appearance Urine pH Ur Specific [place] Urine Protein Urine Glucose (UA) Urine Ketones Urine Blood Urine Nitrate Urine Bilirubin Urine Urobilinogen Ur Leukocyte Esterase Urine RBC Urine WBC Ur Squamous Epith Cells Amorphous Sediment Urine Bacteria H. pylori IgG Antibody SARS-CoV-2 Ag (Rapid) Cardiac Studies: No Data to Display
--- NOTE | 2020-01-30 07:03 | PM.PN ---
Subjective Subjective: Interval history: The patient has had no further bowel movement since I saw him yesterday. He still slightly dizzy when he gets up to move around. He denies any new abdominal symptoms. He has no questions about the EGD this morning. Vitals/I&O/Wt Last Vital Signs Temp 98.6 F 01/30/20 06:18 Pulse 83 01/30/20 06:18 Resp 18 01/30/20 06:18 BP 143/69 01/30/20 06:18 Pulse Ox 100 01/30/20 06:18 01/29/20 01/30/20 01/30/20 22:59 06:59 14:59 Intake Total 360 / 560 200 / 560 Output Total 150 / 550 400 / 550 Balance 210 / 10 -200 / 10 Weight last 48 hrs Weight 190 lb Physical Exam Narrative: EXAM NARRATIVE: Abdomen unchanged. Data : 01/30/20 04:39 01/30/20 04:39 A&P Assessment and plan (1) Melena: No further bowel movements since I talked to the patient yesterday. His hemoglobin has drifted, but I suspect most of this is delusional from rehydration. My understanding is a unit of PRBCs has been ordered for transfusion. Status: Acute (2) Anemia: EGD this morning. Status: Acute Qualifiers: Anemia type: unspecified type Qualified Code(s): D64.9 - Anemia, unspecified Attestations Medical Necessity Statement*: See admitting service's notation. Coding Level of Care Code Acute Gas Tester for [facility] Diagnoses Melena K92.1 Anemia D64.9 Anemia type: unspecified type
[2020-01-30] MEDS: pantoprazole 40 mg SDV IVP ×2 (08:06→21:37)
[2020-01-30] MEDS: nicotine 21 mg Patch 1 PATCH TRANSDERMA (08:26)
--- NOTE | 2020-01-30 09:28 | ANE.PACU2 ---
Inpatient post-anesthesia follow up: Airway intact: Yes Vital signs: Temperature 97.4 F Pulse Rate [Monito r] 82 Pulse Rate 78 Respiratory Rate 18 Blood Pressure [Ri ght Arm] 115/93 Blood Pressure 117/74 Pulse Oximetry 94 Oxygen Delivery Me thod [ Room Air Current Rate & Del leslie] Oxygen Delivery Me thod Room Air Oxygen Flow Rate 3 Fraction of Inspir ed Oxygen Hydration adequate: Yes Nausea and vomiting: No Pain level: 1 Mental status: Baseline
--- NOTE | 2020-01-30 10:00 | PC.CHAP ---
Pastoral Care Encounter/Spiritual Assessment Type of Contact [] Declined honey grader and blender visit [] Patient/Family/Request visit [] Outpatient visit [] Follow-up visit [] Physician referral [] Code/Alert [] Routine visit [] Staff referral [] Actively dying [] Patient sleeping [] Family support [] [] Out of room [] Palliative care [] [] Receiving care in room [] Pre-surgical visit [] Trauma [] Long length of stay [] ICU visit [] Other: Relational/Emotional Strength [] Patient feels connected with others/family/visitors/staff [] Distress [] Loneliness/isolation [] Abandonment Spirituality of Patient [x] Person of Farrah [] Attends Roman Catholic of their Farrah [] Believes in Prayer [] Reads Bible or Yazidism materials [] There are Spiritual issues to be addressed Director Of Instrumental Music Interventions [x] Prayer [x] Active listening [] Non-anxious presence [] Spiritual/emotional support [] Crisis/trauma care [] Spiritual counseling [] Bereavement support [] Provided bereavement packet [x] Provided Bible/devotional materials [] Provided toy/stuffed animal, coloring book to patient or family member [] Provided Communion [] Anointing/[place] [] Salvation [x] Completed spiritual assessment [] Other: Impact on Illness or Injury [] Angry [] Fearful [] Anxious [] Often cries [] Exhaustion [] Unable to work [] Unable to attend yarsanism [] Unable to walk/stand [] Unable to read [] Unable to drive [] Unable to eat/drink [] Unable to sleep [] Unable to be with family [] Patient intubated [] Other: Summary 15 min Time spent with patient
[2020-01-30] MEDS: sodium chloride 0.9% (100 ml) 100 ML 10 ML (10:33)
[2020-01-30] MEDS: cefTRIAXone 1,000 MG in sodium chloride 0.9% (plus) 50 ML 100 MG IV (13:19)
--- NOTE | 2020-01-30 16:40 | PM.PN ---
Subjective Subjective: Interval history: Doing alright following endoscopy. Discussed results with the surgeon. Denies abdominal pain. No bloody BMs. No other changes. Tolerating pRBC transfusion. Vitals/I&O/Wt Last Vital Signs Temp 98.7 F 01/30/20 16:00 Pulse 65 01/30/20 16:00 Resp 20 H 01/30/20 16:00 BP 112/68 01/30/20 16:00 Pulse Ox 95 01/30/20 16:00 01/30/20 01/30/20 01/30/20 06:59 14:59 22:59 Intake Total 200 / 560 790 / 790 Output Total 400 / 550 300 / 300 Balance -200 / 10 490 / 490 Weight last 48 hrs Weight 86.183 kg Physical Exam Const: COMMON NORMALS: no acute distress, patient oriented x3 and alert ORIENTATION/CONSCIOUSNESS: Yes awake HENMT: COMMON NORMALS: oropharynx normal Neck/C-Spine: COMMON NORMALS: no JVD Resp: COMMON NORMALS: normal respiratory effort and clear to auscultation bilaterally AUSCULTATION: clear to auscultation bilaterally Cardio: COMMON NORMALS: no JVD, regular rhythm, S1 normal heart sound present, S2 normal heart sound present and No murmurs present (Cardio) RHYTHM: regular rhythm HEART SOUNDS: S1 normal heart sound present and S2 normal heart sound present GI: COMMON NORMALS: Normal to inspection, nondistended, normoactive bowel sounds present, Soft to palpation and non-tender PALPATION: Yes Soft to palpation Extremity: COMMON NORMALS: no joint enlargement and no pedal edema Neuro: COMMON NORMALS: patient oriented x3 and moves all extremities SENSORIUM/ORIENTATION: Yes alert Skin: COMMON NORMALS: no rashes or lesions noted GENERAL SKIN EXAM: no rashes or lesions noted Data : 01/30/20 04:39 01/30/20 04:39 Micro: Microbiology 01/29/20 11:51 Urine Culture - Preliminary Urine,Clean Catch A&P Assessment and plan (1) Anemia: He is discussed results of EGD with the surgeon with finding of ulceration with clot on top, no active bleeding. Hemoglobin this morning was down to 7.5 pre-EGD, and so PBC transfusion was requested for him by anesthesia in the morning with concern/suspicion of additional decrease. Will recheck hemoglobin. Continue PPI. Prescription surgery for now hold off colonoscopy in favor of outpatient assessment, is also preference of patient. He is agreeable as per recommendation to stay here tonight to reassess hemoglobin in the morning, and if stable and with good response to PRBC transfusion may discharge to outpatient follow-up. Pending H. pylori studies. Status: Acute Qualifiers: Anemia type: unspecified type Qualified Code(s): D64.9 - Anemia, unspecified (2) Acute upper gastrointestinal bleeding: As above. Status: Acute (3) Acute UTI: Rocephin. Follow-up urine culture, preliminary with no growth. Ultrasound without any obstruction. Status: Acute (4) Smoking addiction: Discussed multiple risks with continued smoking. We discussed smoking cessation for about 4 minutes with both him and his daughter. He is not ready to quit or even to consider quitting. Status: Acute (5) Poor dentition: He is making appointment with a dentist. Had what sounds like peritonitis a week ago which appears to be resolving currently. Status: Acute (6) Diarrhea: Resolved. Status: Acute Attestations Medical Necessity Statement*: Continue hospitalization for assessment of acute blood loss anemia, GI bleeding. Coding Level of Care Code Acute Automotive Service Management Teacher for [facility] Fwd Exam Comprehensive Diagnoses Anemia D64.9 Anemia type: unspecified type Acute upper gastrointestinal bleeding K92.2 Acute UTI N39.0 Smoking addiction F17.200 Poor dentition K08.9 Diarrhea R19.7
[2020-01-30 18:30] LABS: Hemoglobin 7.9 g/dL (11.7-16.6)
--- NOTE | 2020-01-30 18:31 | PC.NURSE ---
SHIFT SUMMARY PATIENT HAS DONE WELL TODAY. TOLERATING DIET WITHOUT ISSUES. NO COMPLAINTS OF PAIN. PATIENT TOOK A SHOWER TODAY. GOOD URINE OUTPUT. VITALS STABLE. THIS NURSE TRANSFUSED 1 UNIT OF PRBC'S. NO COMPLAINTS AT THIS TIME.
[2020-01-31 04:00] VITALS: BP 121/64; PULSE 93; RESP 18; TEMP 36.6; O2SAT 93
[2020-01-31 05:29] LABS: Basophils # 0.1 10^3/uL (0.0-0.1); Basophils % 0.6 %; Eosinophils # 0.3 10^3/uL (0.0-0.8); Eosinophils % 4.1 %; Hematocrit 22.8 % (42.0-52.0); Hemoglobin 7.4 g/dL (11.7-16.6); Lymphocytes # 2.4 10^3/uL (0.8-4.8); Lymphocytes % 28.7 %; Mean Corpuscular HGB Conc 32.5 g/dL (30.0-36.0); Mean Corpuscular Hemoglobin 30.7 pg (28.0-34.0); Mean Corpuscular Volume 94.6 fL (80-94); Mean Platelet Volume 10.2 fL (7.4-10.4); Monocytes # 0.6 10^3/uL (0.2-0.9); Monocytes % 7.5 %; Neutrophils # 4.88 10^3/uL (1.8-7.7); Neutrophils % 58.6 %; Nucleated Red Blood Cells % 0.2 %; Platelet Count 139 10^3/cmm (130-400); Red Blood Count 2.41 10^6/uL (4.1-5.3); Red Cell Distribution Width 13.6 % (12.1-15.1); White Blood Count 8.3 10^3/uL (4.0-10.0)
[2020-01-31 08:00] VITALS: BP 117/63; PULSE 77; RESP 20; TEMP 36.4; O2SAT 91
[2020-01-31 08:11] VITALS: PULSE 77; O2SAT 91
[2020-01-31] MEDS: pantoprazole 40 mg SDV IVP ×2 (08:20→22:12)
[2020-01-31] MEDS: nicotine 21 mg Patch 1 PATCH TRANSDERMA (08:20)
--- NOTE | 2020-01-31 09:08 | P.PN_ITS ---
Subjective Subjective: Interval history: Denies any abdominal pain or any further stools. He is having a mild headache. Vitals/I&O/Wt Last Vital Signs Temp 97.5 F L 01/31/20 08:00 Pulse 77 01/31/20 08:11 Resp 20 H 01/31/20 08:00 BP 117/63 01/31/20 08:00 Pulse Ox 91 01/31/20 08:11 01/30/20 01/31/20 01/31/20 22:59 06:59 14:59 Intake Total 480 / 1270 420 / 420 Output Total 350 / 350 Balance 480 / 970 70 / 70 Weight last 48 hrs Weight 86.183 kg Physical Exam Const: COMMON NORMALS: no acute distress, patient oriented x3 and alert ORIENTATION/CONSCIOUSNESS: Yes awake HENMT: COMMON NORMALS: oropharynx normal Neck/C-Spine: COMMON NORMALS: no JVD Resp: COMMON NORMALS: normal respiratory effort and clear to auscultation bilaterally AUSCULTATION: clear to auscultation bilaterally Cardio: COMMON NORMALS: no JVD, regular rhythm, S1 normal heart sound present, S2 normal heart sound present and No murmurs present (Cardio) RHYTHM: regular rhythm HEART SOUNDS: S1 normal heart sound present and S2 normal heart sound present GI: COMMON NORMALS: Normal to inspection, nondistended, normoactive bowel sounds present, Soft to palpation and non-tender PALPATION: Yes Soft to palpation Extremity: COMMON NORMALS: no joint enlargement and no pedal edema Neuro: COMMON NORMALS: patient oriented x3 and moves all extremities SENSORIUM/ORIENTATION: Yes alert Skin: COMMON NORMALS: no rashes or lesions noted GENERAL SKIN EXAM: no rashes or lesions noted Data : 01/31/20 04:36 01/30/20 04:39 Micro: Microbiology 01/29/20 11:51 Urine Culture - Final Urine,Clean Catch A&P Assessment and plan (1) Anemia: Hemoglobin with only partial response to previously transfusion, today back down to 7.4. Discussed with surgery, will monitor him further in the hospital, reassess hemoglobin. Continue PPI IV. Pending H. pylori studies. Discussed with surgery regarding colonoscopy, outpatient study recommended given a source of bleeding has been identified. Status: Acute Qualifiers: Anemia type: unspecified type Qualified Code(s): D64.9 - Anemia, unspecified (2) Acute upper gastrointestinal bleeding: As above. Status: Acute (3) Acute UTI: Rocephin. Urine culture with no growth. Ultrasound without any obstruction. Status: Acute (4) Smoking addiction: Cont to encourage cessation. Status: Acute (5) Poor dentition: He is making appointment with a dentist. Had what sounds like peritonitis a week ago which appears to be resolving currently. Status: Acute (6) Diarrhea: Resolved. Status: Acute Attestations Medical Necessity Statement*: Admission of 40 minutes required for assessment management of ongoing blood loss anemia, GI bleeding. Coding Level of Care Code Acute Landscape Crew Leader for [facility] Fwd Diagnoses Anemia D64.9 Anemia type: unspecified type Acute upper gastrointestinal bleeding K92.2 Acute UTI N39.0 Smoking addiction F17.200 Poor dentition K08.9 Diarrhea R19.7
[2020-01-31 11:07] VITALS: BP 112/52; PULSE 77; RESP 20; TEMP 36.5; O2SAT 91
[2020-01-31 12:59] LABS: H. Pylori / CLO Test Negative
[2020-01-31] MEDS: cefTRIAXone 1,000 MG in sodium chloride 0.9% (plus) 50 ML 100 MG IV (15:14)
[2020-01-31 16:00] VITALS: BP 121/70; PULSE 75; RESP 20; TEMP 36.8; O2SAT 94
--- NOTE | 2020-01-31 18:43 | PC.NURSE ---
SHIFT SUMMARY PATIENT HAS DONE WELL TODAY. PATIENT STATED HE FEELS STRONGER THIS AFTERNOON THAN HE DID THIS MORNING. GOOD URINE OUTPUT. NO BOWEL MOVEMENTS. TOLERATING DIET.
[2020-01-31 19:35] VITALS: BP 123/67; PULSE 78; RESP 20; TEMP 36.6; O2SAT 94
[2020-02-01] VITALS (13 sets, daily range): BP systolic 106–129; BP diastolic 54–78; PULSE 60–78; RESP 14–20; TEMP 36.3–37.9; O2SAT 91–96
[2020-02-01 05:24] LABS: Basophils % 0.4 %; Eosinophils # 0.3 10^3/uL (0.0-0.8); Eosinophils % 3.4 %; Hematocrit 21.8 % (42.0-52.0); Hemoglobin 7.1 g/dL (11.7-16.6); Lymphocytes # 2.1 10^3/uL (0.8-4.8); Lymphocytes % 28.5 %; Mean Corpuscular HGB Conc 32.6 g/dL (30.0-36.0); Mean Corpuscular Volume 95.2 fL (80-94); Mean Platelet Volume 10.4 fL (7.4-10.4); Monocytes # 0.6 10^3/uL (0.2-0.9); Neutrophils # 4.38 10^3/uL (1.8-7.7); Nucleated Red Blood Cells % 0 %; Platelet Count 153 10^3/cmm (130-400); Red Blood Count 2.29 10^6/uL (4.1-5.3); Red Cell Distribution Width 13.7 % (12.1-15.1); White Blood Count 7.4 10^3/uL (4.0-10.0)
--- NOTE | 2020-02-01 05:32 | PC.NURSE ---
SHIFT SUMMARY Has had a good night without c/o. Abd soft and denies any tenderness/pain. Also denies any nausea. Receiving IV Protonix
[2020-02-01] MEDS: nicotine 21 mg Patch 1 PATCH TRANSDERMA (09:05)
--- NOTE | 2020-02-01 09:55 | PC.RESP ---
SMOKING CESSATION AND PULMONARY REHAB INFORMATION SENT TO PATIENT.
--- NOTE | 2020-02-01 10:02 | P.PN_ITS ---
Subjective Subjective: Interval history: He is craving a cigarette. He denies chest pain. Not short of breath. Vitals/I&O/Wt Last Vital Signs Temp 98.1 F 02/01/20 07:34 Pulse 63 02/01/20 07:34 Resp 16 02/01/20 07:34 BP 115/67 02/01/20 07:34 Pulse Ox 91 02/01/20 07:34 01/31/20 02/01/20 02/01/20 22:59 06:59 14:59 Intake Total 600 / 1500 400 / 1900 0 / 0 Balance 600 / 1150 400 / 1550 0 / 0 Physical Exam Const: COMMON NORMALS: no acute distress, patient oriented x3 and alert ORIENTATION/CONSCIOUSNESS: Yes awake HENMT: COMMON NORMALS: oropharynx normal Neck/C-Spine: COMMON NORMALS: no JVD Resp: COMMON NORMALS: normal respiratory effort and clear to auscultation bilaterally AUSCULTATION: clear to auscultation bilaterally Cardio: COMMON NORMALS: no JVD, regular rhythm, S1 normal heart sound present, S2 normal heart sound present and No murmurs present (Cardio) RHYTHM: regular rhythm HEART SOUNDS: S1 normal heart sound present and S2 normal heart sound present GI: COMMON NORMALS: Normal to inspection, nondistended, normoactive bowel s ounds present, Soft to palpation and non-tender PALPATION: Yes Soft to palpation Extremity: COMMON NORMALS: no joint enlargement and no pedal edema Neuro: COMMON NORMALS: patient oriented x3 and moves all extremities SENSORIUM/ORIENTATION: Yes alert Skin: COMMON NORMALS: no rashes or lesions noted GENERAL SKIN EXAM: no rashes or lesions noted Data : 02/01/20 04:40 01/30/20 04:39 Micro: Microbiology 01/29/20 11:51 Urine Culture - Final Urine,Clean Catch A&P Assessment and plan (1) Anemia: Hb down to 7.1. Discussed with him and with surgery. We will go ahead and give him a unit of PRBC. Start sucralfate. Monitor hemoglobin further until tomorrow. He is agreeable to stay. Continue PPI IV. Pending H. pylori studies. Negative antigen. Discussed with surgery regarding colonoscopy, outpatient study recommended given a source of bleeding has been identified. Status: Acute Qualifiers: Anemia type: unspecified type Qualified Code(s): D64.9 - Anemia, unspecified (2) Acute upper gastrointestinal bleeding: As above. Status: Acute (3) Acute UTI: Rocephin. Urine culture not helpful. If having no symptoms, may stop antibiotics. Ultrasound without any obstruction. Status: Acute (4) Smoking addiction: Cont to encourage cessation. Status: Acute (5) Poor dentition: He is making appointment with a dentist. Had what sounds like peritonitis a week ago which appears to be resolving currently. Status: Acute (6) Diarrhea: Resolved. Status: Acute Attestations Medical Necessity Statement*: Continue admission for assessment management of acute blood loss anemia, GI bleeding. Coding Level of Care Code Acute Formula Technician for [facility] Fwd Exam Comprehensive Diagnoses Anemia D64.9 Anemia type: unspecified type Acute upper gastrointestinal bleeding K92.2 Acute UTI N39.0 Smoking addiction F17.200 Poor dentition K08.9 Diarrhea R19.7
[2020-02-01] MEDS: pantoprazole 40 mg SDV IVP ×2 (10:47→21:43)
[2020-02-01] MEDS: sucralfate 1 gm/10 mL Oral Liq UDC PO ×3 (11:43→22:38)
[2020-02-01] MEDS: cefTRIAXone 1,000 MG in sodium chloride 0.9% (plus) 50 ML 100 MG IV (14:52)
--- NOTE | 2020-02-01 18:30 | PC.NURSE ---
shift summary pt received 1 unit of blood this shift. pt tolerated well. no other changes this shift.
[2020-02-02] VITALS: BP 124/71; PULSE 61; RESP 17; TEMP 36.7; O2SAT 93
[2020-02-02 04:00] VITALS: BP 123/63; PULSE 62; RESP 17; TEMP 36.7; O2SAT 90
[2020-02-02 05:37] LABS: Basophils % 0.6 %; Eosinophils # 0.3 10^3/uL (0.0-0.8); Eosinophils % 4.3 %; Hematocrit 24.6 % (42.0-52.0); Hemoglobin 8.1 g/dL (11.7-16.6); Lymphocytes # 1.5 10^3/uL (0.8-4.8); Lymphocytes % 22.2 %; Mean Corpuscular HGB Conc 32.9 g/dL (30.0-36.0); Mean Corpuscular Hemoglobin 30.7 pg (28.0-34.0); Mean Corpuscular Volume 93.2 fL (80-94); Mean Platelet Volume 9.9 fL (7.4-10.4); Monocytes # 0.7 10^3/uL (0.2-0.9); Monocytes % 9.7 %; Neutrophils # 4.18 10^3/uL (1.8-7.7); Neutrophils % 62.6 %; Nucleated Red Blood Cells % 0.3 %; Platelet Count 168 10^3/cmm (130-400); Red Blood Count 2.64 10^6/uL (4.1-5.3); Red Cell Distribution Width 14.5 % (12.1-15.1); White Blood Count 6.7 10^3/uL (4.0-10.0)
[2020-02-02] MEDS: sucralfate 1 gm/10 mL Oral Liq UDC PO ×2 (06:31→10:20)
[2020-02-02 08:28] VITALS: BP 115/58; PULSE 63; RESP 16; TEMP 36.4; O2SAT 90
[2020-02-02] MEDS: pantoprazole 40 mg SDV IVP (09:10)
--- NOTE | 2020-02-02 09:14 | PC.NURSE ---
Patient last BM 01/29/20, requesting something to aide with BM, Dr. Beatty notified.
--- NOTE | 2020-02-02 09:20 | DCPLANNER ---
Pg 2 of IM updated and reviewed with pt. He states that his daughter had received that information when he came in. He will be ready to go when d/cd as he feels he's been here to long already. Copy provided.
--- NOTE | 2020-02-02 10:47 | PM.DCS ---
Discharge Providers Date of Admission: 01/30/20 19:53 Date of Discharge: February 02, 2020 Attending Provider at Admission: Manpreet Beatty Attending Provider at Discharge: Manpreet Beatty Diagnoses at Discharge Discharge Diagnosis (1) Anemia: Status: Acute Qualifiers: Anemia type: unspecified type Qualified Code(s): D64.9 - Anemia, unspecified (2) Acute upper gastrointestinal bleeding: Status: Acute (3) Acute UTI: Status: Acute (4) Smoking addiction: Status: Acute (5) Poor dentition: Status: Acute (6) Diarrhea: Status: Acute Reason for Visit Reason for Visit: N/V, WEAKNESS Hospital Course Hospital Course Pleasant 74-year-old gentleman current smoker, with history of recurrent wheezing, but denies being formally diagnosed with any kind of lung condition, although has not seen a physician in a long time, also with poor dentition, sitting up to see a dentist due to recent tooth infection, was admitted after episode of diarrhea with black stools, one episode of vomiting, with noted acute blood loss anemia, elevated BUN, suggestive of upper GI bleeding. He was started on PPI. Due to UTI started on Rocephin on presentation, although subsequently no growth on urinary culture was obtained. He was counseled on smoking cessation, however, is not ready to quit. Recent gingivitis and right lower jaw had resolved, however, has very poor dentition. He underwent assessment by EGD and was found to have small distal duodenal bulb ulcer with clot on the surface. CLOtest was obtained. He received 2 units PRBC total. Also started on sucralfate. He has had adequate response to last PBC transfusion with hemoglobin rising from 7.1-8.1. He has been wanting to discharge from the hospital, and so was asked to revisit with primary care provider to recheck hemoglobin levels to make sure bleeding subsided prior to returning to work. Colonoscopy is also recommended for him which per surgery did not need to be performed while in the hospital given an identified source of bleeding. He is encouraged to follow-up for colonoscopy with surgery per discussion if he will be willing to have the procedure done. Please also follow-up regarding his recurrent wheezing. He would also benefit from assessment by CT of the chest given his long smoking history. Please revisit with him and refer if he will be agreeable. Continue to encourage smoking cessation, although he has not been ready to quit. Physical Exam Const: COMMON NORMALS: no acute distress, patient oriented x3 and alert ORIENTATION/CONSCIOUSNESS: Yes awake HENMT: COMMON NORMALS: oropharynx normal Neck/C-Spine: COMMON NORMALS: no JVD Resp: COMMON NORMALS: normal respiratory effort and clear to auscultation bilaterally AUSCULTATION: clear to auscultation bilaterally Cardio: COMMON NORMALS: no JVD, regular rhythm, S1 normal heart sound present, S2 normal heart sound present and No murmurs present (Cardio) RHYTHM: regular rhythm HEART SOUNDS: S1 normal heart sound present and S2 normal heart sound present GI: COMMON NORMALS: Normal to inspection, nondistended, normoactive bowel sounds present, Soft to palpation and non-tender PALPATION: Yes Soft to palpation Extremity: COMMON NORMALS: no joint enlargement and no pedal edema Neuro: COMMON NORMALS: patient oriented x3 and moves all extremities SENSORIUM/ORIENTATION: Yes alert Skin: COMMON NORMALS: no rashes or lesions noted GENERAL SKIN EXAM: no rashes or lesions noted Discharge Data Data Completed and Pending: Completed Studies During Hospitalization Category Date Time Status XR chest 1V zoey ble [id number] Stat Exams 01/29/20 11:11 Completed US renal BI* [id number] 0 Routine Ultrasound 01/29/20 15:27 Completed Pending at discharge Category Date Time Status Clostridioides Di fficile PCR Routin e Lab 01/29/20 15:22 Uncollected Complete Blood Co unt w/Auto AM LABS Lab 02/03/20 04:00 Ordered Complete Blood Co unt w/Auto AM LABS Lab 02/04/20 04:00 Ordered Enteric Bacterial Panel by PCR Rout ine Lab 01/29/20 15:22 Uncollected Enteric Parasite Panel by PCR Routi ne Lab 01/29/20 15:22 Uncollected Helicobacter Pylo ri AG Stool Routin e Lab 01/29/20 15:25 Uncollected Immunochemical Fe deysi OCB Routine Lab 01/29/20 13:24 Uncollected Labs from last 24 hours 02/02/20 01/30/20 05:07 06:54 WBC 6.7 RBC 2.64 L Hgb 8.1 L Hct 24.6 L MCV 93.2 MCH 30.7 MCHC 32.9 RDW 14.5 Plt Count 168 MPV 9.9 Neut % (Auto) 62.6 Lymph % (Auto) 22.2 [place] % (Auto) 9.7 Eos % (Auto) 4.3 Baso % (Auto) 0.6 Neut # (Auto) 4.18 Lymph # (Auto) 1.5 [place] # (Auto) 0.7 Eos # (Auto) 0.3 Baso # (Auto) 0.0 Nucleated RBC % (a uto) 0.3 Nucleated RBCs # 0.0 Blood Type B Positive Rho(D) Type Positive Antibody Screen Negative Crossmatch See Detail Vitals: Last Vital Signs Temp 97.6 F 02/02/20 08:28 Pulse 63 02/02/20 08:28 Resp 16 02/02/20 08:28 BP 115/58 02/02/20 08:28 Pulse Ox 90 02/02/20 08:28 Discharge Plan Discharge Patient Disposition: Home Condition: Stable Prescriptions: New pantoprazole 40 mg tablet,delayed release (DR/EC) 40 mg PO BID 42 Days Qty: 168 RF: 0 sucralfate 1 gram tablet 1 g PO BID 28 Days Qty: 56 RF: 0 Miralax 17 gram powder in packet 17 g PO DAILY PRN (Reason: constipation) Qty: 30 RF: 0 Continued Tylenol Extra Strength 500 mg Tablet 1,000 mg PO PRN RF: 0 Mucinex 600 mg Tablet Extended Release 12hr 600 - 1,200 mg PO PRN RF: 0 Discharge Orders: Discharge Order (Routine); Ordered 02/02/20 Ordered By: Manpreet Beatty Referrals: Leif Elam MD [Physician] - 1 week Kenney,JORJE Quevedo [Referring] - (Appt. with Emy RECINOS @ [facility]. February 08 @ 3:00. Please bring insurance cards, photo I.D. and list of medications. ) Discharge Diet: Advance as tolerated and GI Soft Discharge Activity: Increase activity as tolerated Patient Instructions: Sucralfate (By mouth), Pantoprazole (By mouth), Polyethylene Glycol 3350 (By mouth), How to Stop Smoking (DC), Peptic Ulcer (DC), Anemia (DC) Activity Restrictions/Additional Instructions: Please have your primary care physician follow up on your blood count to make sure you are not losing further blood before returning to work. Please take acid rogerio medication pantoprazole twice daily for 6 weeks due to bleeding ulcer. Additional adjunctive medication that may help his sucralfate which is also prescribed for you for 4 weeks. Please follow-up with Dr. Elam to set up for a colonoscopy. Discuss further with your primary care doctor as well. Please discuss with your primary care doctor regarding your smoking history, recurrent wheezing. Please discuss obtaining a CT scan of your chest to assess for any concerning causes of wheezing and exclude malignancy. Please reconsider quitting smoking. Discuss further with your primary care provider about strategies that may help. Please continue follow-up with the dentist. Discharge Attestations Time Spent in Discharge Care*: greater than 30 min Quality Metrics Clinical Quality Measures During this hospital stay, did patient experience: None Coding Level of Care Code Acute Truck Striker for [facility] Diagnoses Anemia D64.9 Anemia type: unspecified type Acute upper gastrointestinal bleeding K92.2 Acute UTI N39.0 Smoking addiction F17.200 Poor dentition K08.9 Diarrhea R19.7
[2020-02-02 12:36] VITALS: BP 125/56; PULSE 62; RESP 16; O2SAT 91
[2020-02-02] MEDS: cefTRIAXone 1,000 MG in sodium chloride 0.9% (plus) 50 ML 100 MG IV (12:43)
[2020-02-02 15:32] VITALS: BP 126/62; PULSE 64; RESP 15; O2SAT 15
--- NOTE | 2020-02-02 17:04 | PC.NURSE ---
Patient discharged with personal belongings including cigarettes and gray tender from lockup and clothes, meds to beds delivered home medication.
[2020-02-02 17:05] VITALS: BP 126/62; PULSE 64; RESP 15
== END 2020-02-02 17:07 | disposition home or self-care (01) | DRG 378 ==
LOC: ER 14:17 → MEDSURG 14:28
PROVIDERS: Surgery; Admitting Provider Internal Medicine; Emergency Provider Emergency Medicine; PCP Nurse Practitioner Family; Visit Provider Internal Medicine
PROC: 0DJ08ZZ Inspection of Upper Intestinal Tract, Via Natural or Artificial Opening Endoscopic (ICD-10-PCS; CPT 43235; principal; 2020-01-30 07:30)
DX: K26.0 Acute duodenal ulcer with hemorrhage (principal); N39.0 Urinary tract infection, site not specified; D62 Acute posthemorrhagic anemia; K22.2 Esophageal obstruction; F17.210 Nicotine dependence, cigarettes, uncomplicated; F10.21 Alcohol dependence, in remission; K08.89 Other specified disorders of teeth and supporting structures; R19.7 Diarrhea, unspecified
CPT/HCPCS: 12345; 36415; 36430; 43239; 71045; 76770; 76857; 80053; 81001; 83605; 83690; 83735; 83880; 84145; 84484; 85018; 85025; 85378; 85610; 86140; 86677; 86850; 86900; 86920; 87077; 87086; 87426; 93005; 96375; 99282; C9113; G0378; J0696; J2704; J7030; P9016

== ENCOUNTER 2020-02-20 12:32 | Emergency (ER) | payer MEDICARE, SELFPAY ==
[2020-02-20 12:51] VITALS: BP 114/69; PULSE 76; RESP 16; TEMP 36.2; O2SAT 94; BMI 27.0
--- NOTE | 2020-02-20 13:03 | ECG_ITS ---
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 Measurements Intervals [place] Rate: 75 P: 94 IA: 170 QRS: 57 QRSD: 76 T: 71 QT: 387 QTc: 435 Interpretive Statements SINUS RHYTHM WITH OCCASIONAL SUPRAVENTRICULAR PREMATURE COMPLEXES Compared to ECG 01/29/2020 14:16:18 T-wave abnormality no longer present Possible ischemia no longer present Electronically Signed On 02-20-2020 18:29:39 MOTOR BUILDER WINDER by Jewel Patel M.D. [id number]
--- NOTE | 2020-02-20 13:03 | XR_ITS ---
WS: [id number] PORTABLE CHEST HISTORY: dyspnea/cough COMPARISON: 01/29/2020 Pulmonary hyperexpansion. Benign granuloma central LEFT lung. No pneumonia. No pleural effusion or pn eumothorax. Cardiac size: Normal. Mediastinum/Aorta: Normal mediastinum. No osseous abnormality seen. XR/XR chest 1V portable [id number] IMPRESSION: Chronic emphysema. No pneumonia.
--- NOTE | 2020-02-20 13:03 | W.ED.GENADLT ---
HPI - General Adult General: Chief complaint: General Medical Stated complaint: weakness, bilateral feet swelling Time Seen by Provider: 02/20/20 13:36 History of Present Illness: HPI narrative: 74-year-old male presents complaining of feeling weak with lower extremity swelling. He was recently hospitalized for bleeding ulcer and received several transfusions. Denies any hematemesis or coffee-ground emesis denies any dysuria urgency or frequency denies any kind of GI symptoms. No chest pain no abdominal pain. Onset (ago): hour(s) Severity: moderate Pain Consistency: constant Relieving factors: none Exacerbating factors: none Associated symptoms: Reports malaise; Deny chest pain, confusion, cough, diaphoresis, decreased appetite, dyspnea, fevers/chills, headache(s), nausea, rash, palpitations, seizures, short of breath, syncope, vomiting or weakness Treatments prior to arrival: none Review of Systems Const: Reports: malaise; Denies: diaphoresis ENMT: Denies: throat pain, ear or mastoid pain, nasal discharge or nasal congestion Card: Denies: chest pain, palpitations or syncope Resp: Denies: dyspnea GI: Denies: vomiting : Denies: flank pain, dysuria, urinary frequency or urinary urgency Skin/Breast: Denies: rash Neuro: Denies: headache(s) or confusion PFSH ED PFSH: Medical History COPD (chronic obstructive pulmonary disease) Poor dentition Smoking addiction Surgical History H/O wrist surgery Right --nerve injury following compression injury Family History Mother CHF (congestive heart failure) GI bleeding Father CHF (congestive heart failure) Other COPD (chronic obstructive pulmonary disease) Social History Smoking and tobacco status: current some day smoker cigarettes Packs smoked per day: 2 Years cigarettes smoked: 60 Alcohol intake: former Year of sobriety/quit date alcohol: 2015 Lives independently: Yes Current occupational status: employed Physical Exam Const: COMMON NORMALS: no acute distress GENERAL APPEARANCE: cooperative and comfortable ORIENTATION/CONSCIOUSNESS: Yes awake, Yes oriented to person, Yes oriented to place and Yes oriented to time HENMT: COMMON NORMALS: normocephalic, atraumatic and hearing grossly normal bilaterally HEAD & SCALP: normocephalic and atraumatic Eye: COMMON NORMALS: Equal, round and reactive pupils present, EOMs intact bilaterally, conjunctivae normal and no scleral icterus CONJUNCTIVA: Yes conjunctivae normal PUPIL: Yes Equal, round and reactive pupils present Neck/C-Spine: COMMON NORMALS: full ROM, no lymphadenopathy, supple and no JVD Lymph: LYMPHATIC: no lymphadenopathy noted and no lymphedema noted Resp: COMMON NORMALS: normal respiratory effort, No retractions, No use of accessory muscles and clear to auscultation bilaterally AUSCULTATION: clear to auscultation bilaterally Cardio: COMMON NORMALS: no JVD, regular rate, regular rhythm and No murmurs present (Cardio) RATE: regular rate RHYTHM: regular rhythm GI: COMMON NORMALS: Soft to palpation and No hepatosplenomegaly present AUSCULTATION: Yes normoactive bowel sounds PALPATION: Yes Soft to palpation, No Tenderness to palpation present (GI), No Guarding due to palpation present (GI) and Yes No hepatosplenomegaly present Extremity: COMMON NORMALS: normal to inspection, capillary refill normal, no clubbing, cyanosis or edema, no calf tenderness and no pedal edema Neuro: SENSORIUM/ORIENTATION: Yes oriented to person, Yes oriented to place and Yes oriented to time Skin: COMMON NORMALS: no rashes or lesions noted GENERAL SKIN EXAM: no rashes or lesions noted Course Vital Signs: Vital signs: Vital Signs Temperature 97.2 F L 02/20/20 12:51 Pulse Rate 57 L 02/20/20 16:05 Respiratory Rate 18 02/20/20 16:05 Blood Pressure 146/71 02/20/20 16:05 Pulse Oximetry 97 02/20/20 16:05 MDM - General Adult MDM Narrative: Medical decision making narrative: Reviewed findings the patient. We will treat for cystitis return if has worsening problems follow-up with primary care Lab Data: Attestation: I reviewed the patient's lab results. Labs: Lab Results 02/20/20 02/20/20 02/20/20 Range/Units 14:06 14:06 14:53 WBC 7.7 (4.0-10.0) 10^3/ uL RBC 4.05 L (4.1-5.3) 10^6/u L Hgb 11.8 (11.7-16.6) g/dL Hct 37.1 L (42.0-52.0) % MCV 91.6 (80-94) fL MCH 29.1 (28.0-34.0) pg MCHC 31.8 (30.0-36.0) g/dL RDW 13.5 (12.1-15.1) % Plt Count 233 (130-400) 10^3/c mm MPV 9.0 (7.4-10.4) fL Neut % (Auto) 68.6 % Lymph % (Auto) 19.4 % [place] % (Auto) 8.2 % Eos % (Auto) 2.9 % Baso % (Auto) 0.8 % Neut # (Auto) 5.27 (1.8-7.7) 10^3/u L Lymph # (Auto) 1.5 (0.8-4.8) 10^3/u L [place] # (Auto) 0.6 (0.2-0.9) 10^3/u L Eos # (Auto) 0.2 (0.0-0.8) 10^3/u L Baso # (Auto) 0.1 (0.0-0.1) 10^3/u L Nucleated RBC % (a uto) 0 % Nucleated RBCs # 0.0 /100WBC Sodium 137 (136-145) mmol/L Potassium 3.9 (3.5-5.1) mmol/L Chloride 101 (98-107) mmol/L Carbon Dioxide 25 (22-29) mmol/L Anion Gap 14.9 (5-19) BUN 11 (8-23) mg/dL Creatinine 1.0 (0.7-1.2) mg/dL GFR Calculation Not Reportable Glucose 92 (65-115) mg/dL Calculated Osmolal ity 283 L (285-295) mOsm/k g Calcium 9.0 (8.5-10.5) mg/dL Total Bilirubin 0.2 (0.15-1.2) mg/dL AST 17 (0-40) U/L ALT 8 (0-41) U/L Alkaline Phosphata se 89 (40-130) IU/L NT-Pro-B Natriuret Pep 126 H (0-125) pg/mL Total Protein 6.7 (6.6-8.7) g/dL Albumin 4.1 (3.5-5.2) g/dL Globulin 2.6 (1.3-4.6) g/dL Urine Color Yellow (Yellow) Urine Appearance Clear (CLEAR) Urine pH 5.0 (5-7) Ur Specific Gravit y 1.020 (1.005-1.030) Urine Protein Neg (Negative) Urine Glucose (UA) Norm (Normal) Urine Ketones 1+ H (Negative) Urine Blood Neg (Negative) Urine Nitrate Negative (Negative) Urine Bilirubin 1+ H (Negative) Urine Urobilinogen 1 H (Negative) mg/dL Ur Leukocyte Elizabeth ase 2+ H (Negative) Urine RBC Rare (0-2) /hpf Urine WBC 55-80 H (0-5) /hpf Ur Squamous Epith Cells 5-10 H (0-5) /hpf Amorphous Sediment Not Reportable Urine Bacteria 2+ H (NONE) /hpf Urine Mucus 1+ /hpf Discharge Plan Discharge Patient Disposition: Home Clinical Impression: Cystitis Condition: Stable Prescriptions: New Cipro 250 mg tablet 250 mg PO BID Qty: 14 RF: 0 No Action acetaminophen [Tylenol Extra Strength] 500 mg Tablet 1,000 mg PO PRN PRN (Reason: Pain) RF: 0 guaifenesin [Mucinex] 600 mg Tablet Extended Release 12hr 600 - 1,200 mg PO PRN RF: 0 polyethylene glycol 3350 [Miralax] 17 gram powder in packet 17 g PO DAILY PRN (Reason: constipation) Qty: 30 RF: 0 sucralfate 1 gram tablet 1 g PO BID@0600,1800 RF: 0 pantoprazole 40 mg tablet,delayed release (DR/EC) 40 mg PO BID@0600,1800 RF: 0 Discharge Orders: Discharge ED (Routine); Ordered 02/20/20 Ordered By: Dayne Garcia Referrals: Emy Kenney FNP [Primary Care Provider] - Discharge Diet: Usual diet Discharge Activity: Resume usual activity Coding Level of Care Code ED Custom Studio Coordinator for Chg Fwd Exam Comprehensive
--- NOTE | 2020-02-20 13:06 | USCV_ITS ---
Carlos Bernabe Age: 74 Gender: M : 1945 Exam Date: 02/20/2020 13:20 Ordering Phys: Marly Dimas DO Technologist: Kalyan Vilchis Exam Location: [facility] [place] Indication: ble swelling HISTORY: Lower extremity swelling. PROCEDURES: Venous duplex imaging was performed in bilateral lower extremities. The following venous structures were evaluated: common femoral vein, profunda vein, proximal portion of the greater saphenous vein, superficial femoral vein, and the popliteal vein. In addition, the posterior tibial veins were evaluated. In addition, the posterior tibial and peroneal trunk were evaluated. FINDINGS: Normal 2-D Doppler and augmentation and compressibility throughout the lower extremity venous structures. Additional imaging through the proximal calf veins also reveals no thrombus. Limited evaluation of the greater saphenous vein is patent with no thrombus. CONCLUSIONS No DVT bilateral lower extremities. Dr. Opal Ayala DO (Electronically Signed) Final Date: 20 February 2020 15:12 S
[2020-02-20 14:20] LABS: Basophils # 0.1 10^3/uL (0.0-0.1); Basophils % 0.8 %; Eosinophils # 0.2 10^3/uL (0.0-0.8); Eosinophils % 2.9 %; Hematocrit 37.1 % (42.0-52.0); Hemoglobin 11.8 g/dL (11.7-16.6); Lymphocytes # 1.5 10^3/uL (0.8-4.8); Lymphocytes % 19.4 %; Mean Corpuscular HGB Conc 31.8 g/dL (30.0-36.0); Mean Corpuscular Hemoglobin 29.1 pg (28.0-34.0); Mean Corpuscular Volume 91.6 fL (80-94); Monocytes # 0.6 10^3/uL (0.2-0.9); Monocytes % 8.2 %; Neutrophils # 5.27 10^3/uL (1.8-7.7); Neutrophils % 68.6 %; Nucleated Red Blood Cells % 0 %; Platelet Count 233 10^3/cmm (130-400); Red Blood Count 4.05 10^6/uL (4.1-5.3); Red Cell Distribution Width 13.5 % (12.1-15.1); White Blood Count 7.7 10^3/uL (4.0-10.0)
[2020-02-20 14:42] LABS: Alanine Aminotransferase 8 U/L (0-41); Albumin Level 4.1 g/dL (3.5-5.2); Alkaline Phosphatase 89 IU/L (40-130); Anion Gap 14.9 (5-19); Aspartate Amino Transferase 17 U/L (0-40); Blood Urea Nitrogen 11 mg/dL (8-23); Carbon Dioxide 25 mmol/L (22-29); Chloride 101 mmol/L (98-107); Globulin 2.6 g/dL (1.3-4.6); Glucose 92 mg/dL (65-115); NT Pro B Type Natriuretic Pept 126 pg/mL (0-125); Osmolality Calculated 283 mOsm/kg (285-295); Potassium 3.9 mmol/L (3.5-5.1); Sodium 137 mmol/L (136-145); Total Bilirubin 0.2 mg/dL (0.15-1.2); Total Protein 6.7 g/dL (6.6-8.7)
[2020-02-20 15:39] LABS: Add Urine Microscopic? YES; Bilirubin Urine 1+ (Negative); Blood Urine Neg (Negative); Glucose Urine UA Norm (Normal); Ketones Urine 1+ (Negative); Leukocyte Esterase Urine 2+ (Negative); Nitrate Urine Negative (Negative); Protein Urine Neg (Negative); Urine Appearance Clear (CLEAR); Urine Color Yellow (Yellow); Urobilinogen Urine 1 mg/dL (Negative)
[2020-02-20 15:46] LABS: RBC Urine RARE /hpf (0-2); WBC Urine 55-80 /hpf (0-5)
[2020-02-20 15:47] LABS: Add Urine Culture? Yes; Bacteria Urine 2+ /hpf; Mucus Urine 1+ /hpf
[2020-02-20 16:05] VITALS: BP 146/71; PULSE 57; RESP 18; O2SAT 97
== END 2020-02-20 16:07 | disposition home or self-care (01) ==
PROVIDERS: Emergency Provider Family Medicine; PCP Nurse Practitioner Family
DX: N30.90 Cystitis, unspecified without hematuria (principal); J44.9 Chronic obstructive pulmonary disease, unspecified; F17.210 Nicotine dependence, cigarettes, uncomplicated; M79.89 Other specified soft tissue disorders
CPT/HCPCS: 12345; 71045; 80053; 81001; 83880; 85025; 87086; 93005; 93970; 99282; 99283

== ENCOUNTER → 2020-03-22 12:33 | Outpatient (BNVA) | payer MEDICARE, SELFPAY | PROVIDERS: PCP Nurse Practitioner Family; Visit Provider Surgery | DX: Z20.822 Contact with and (suspected) exposure to COVID-19 (principal) | CPT/HCPCS: 87635 ==

== ENCOUNTER 2020-03-28 05:31 | Day surgery (SDC) | payer MEDICARE, SELFPAY ==
[2020-03-26 13:41] VITALS: BMI 25.0
[2020-03-28 06:10] VITALS: BP 152/76; PULSE 79; RESP 18; TEMP 36.1; O2SAT 96
[2020-03-28] MEDS: sodium chloride 0.9% 1,000 ML 30 ML IV (06:24)
--- NOTE | 2020-03-28 07:45 | ANES.PREANE2 ---
Pre-Anesthetic Assessment Pre-Anesthetic Assessment: Height/Weight: Height 1.85 m Weight 86.183 kg Temp Pulse Resp BP Pulse Ox 97 F L 79 18 152/76 96 03/28/20 06:10 03/28/20 06:10 03/28/20 06:10 03/28/20 06:10 03/28/20 06:10 Preop Diagnosis: GI bleed Proposed Procedure: Operation Date: 03/28/20 07:00 Proposed Procedures p EGD/Colon 32170 K26.4(Not Applicable) - Leif Elam MD s Colonoscopy 78684 Z12.11(Not Applicable) - Leif Elam MD Was Beta Nayeli taken within 24 hours: N/A Last intake: Intake Last Liquid Date 03/28/20 Last Liquid Time 05:30 Last Solid Date 03/26/20 Last Solid Time 22:00 Social: Social History: Tobacco History/ROS: No significant complaints Pulmonary: Pulmonary: None reported CV/HEM: CV/HEM: None reported : : None reported Hepatic: Hepatic: None reported GI: Comments: GI bleed Metabolic: Metabolic: None reported Musc/skel: Musc/skel: None reported Neuropsych: Neuropsych: None reported Anesthetic Plan: ASA status: 2 Anesthesia: MAC Risk of > 500 ml blood loss (7ml/kg in children): No Meds/Allergies Current Medications: Current Medications Generic Name Dose Route Start Last Admin Trade Name Freq PRN Reason Stop Dose Admin Sodium Chloride 1,000 mls @ 30 ml s/hr 03/28/20 06:00 03/28/20 06:24 Sodium Chloride 0.9% IV 03/29/20 05:59 30 mls/hr .Q24H JOVAN Administration PFSH Anesthesia PFSH: Medical History COPD (chronic obstructive pulmonary disease) Poor dentition Smoking addiction Surgical History H/O wrist surgery Right --nerve injury following compression injury Family History Mother CHF (congestive heart failure) GI bleeding Father CHF (congestive heart failure) Other COPD (chronic obstructive pulmonary disease) Social History Smoking and tobacco status: current some day smoker cigarettes Packs smoked per day: 2 Years cigarettes smoked: 60 Alcohol intake: former Year of sobriety/quit date alcohol: 2015 Lives independently: Yes Current occupational status: employed Data Anesthesia Cardiac Studies: No Data to Display
--- NOTE | 2020-03-28 08:04 | W.PM.OPSUD ---
Surgery/Procedure H&P Update DATE OF PROCEDURE: March 28, 2020 DATE H&P PERFORMED: 03/12/20 H&P UPDATE INFORMATION: No changes to prior documentation PREOP DIAGNOSIS: Flank pain, h/o duodenal ulcer PLANNED PROCEDURE: Operation Date: 03/28/20 07:00 Proposed Procedures p EGD/Colon 44633 K26.4(Not Applicable) - Leif Elam MD s Colonoscopy 87483 Z12.11(Not Applicable) - Leif Elam MD
[2020-03-28 08:31] VITALS: BP 106/79; PULSE 74; RESP 18; TEMP 36.1; O2SAT 99
[2020-03-28 08:46] VITALS: BP 141/96; PULSE 81; RESP 18; TEMP 36.3; O2SAT 97
--- NOTE | 2020-03-28 12:07 | ANE.PACU2 ---
Inpatient post-anesthesia follow up: Airway intact: Yes Vital signs: Temperature 97.4 F Pulse Rate 81 Respiratory Rate 18 Blood Pressure 141/96 Pulse Oximetry 97 Oxygen Delivery Me thod Room Air Oxygen Flow Rate 2 Fraction of Inspir ed Oxygen Hydration adequate: Yes Nausea and vomiting: No Pain level: 1 Mental status: Baseline
[2020-04-01 07:00] LABS: H. Pylori / CLO Test Negative
== END 2020-03-28 09:10 | disposition home or self-care (01) ==
PROVIDERS: PCP Nurse Practitioner Family; Visit Provider Surgery
PROC: 0DJ08ZZ Inspection of Upper Intestinal Tract, Via Natural or Artificial Opening Endoscopic (ICD-10-PCS; CPT 43235; principal; 2020-03-28 07:00)
PROC: 0DJD8ZZ Inspection of Lower Intestinal Tract, Via Natural or Artificial Opening Endoscopic (ICD-10-PCS; CPT 45378; 2020-03-28 07:00)
DX: Z12.11 Encounter for screening for malignant neoplasm of colon (principal); K57.30 Diverticulosis of large intestine without perforation or abscess without bleeding; K64.8 Other hemorrhoids; K29.70 Gastritis, unspecified, without bleeding; J44.9 Chronic obstructive pulmonary disease, unspecified; F17.210 Nicotine dependence, cigarettes, uncomplicated; Z87.11 Personal history of peptic ulcer disease
CPT/HCPCS: 12345; 43239; 87077; G0121; J2704; J7030

== ENCOUNTER → 2021-05-16 07:55 | Outpatient (BNVA) | payer MEDICARE, SELFPAY | PROVIDERS: PCP Nurse Practitioner Family; Visit Provider Nurse Practitioner Family | DX: I48.91 Unspecified atrial fibrillation (principal) ==

== ENCOUNTER → 2021-08-18 10:30 | Outpatient (BNVA) | payer MEDICARE, SELFPAY | PROVIDERS: PCP Nurse Practitioner Family; Visit Provider Internal Medicine Cardiovascular Disease | DX: I48.91 Unspecified atrial fibrillation (principal); R00.1 Bradycardia, unspecified; J44.9 Chronic obstructive pulmonary disease, unspecified; F17.210 Nicotine dependence, cigarettes, uncomplicated; G47.10 Hypersomnia, unspecified; Z79.01 Long term (current) use of anticoagulants | CPT/HCPCS: 99214 ==

== ENCOUNTER 2022-03-29 10:29 | Emergency (ER) | payer MEDICARE, SELFPAY ==
--- NOTE | 2022-03-29 10:37 | XRR_ITS ---
PROCEDURE INFORMATION: Exam: XR Left Shoulder Exam date and time: 03/29/2022 10:58 AM Age: 76 years old Clinical indication: Pain; Shoulder; Left; Additional info: Left shoulder pain TECHNIQUE: Imaging protocol: Radiologic exam of the Left shoulder. Views: 2 or more views. COMPARISON: CR XR chest 1V [id number] 09/11/2020 12:57 PM FINDINGS: Limitations: Study is limited to a single AP view. Bones/joints: There are moderate degenerative changes at the AC joint and glenohumeral joint with joint space narrowing, subchondral sclerosis and marginal spurring. There is a 2 cm rectangular shaped ossific density projecting over the inferior aspect of the chromium presumed to represent a large spur and predispose this patient to rotator cuff impingement. There is no fracture, dislocation or malalignment at the shoulder joint. Soft tissues: Normal. XR/XR shoulder LT min 2V* [id number] IMPRESSION: Moderate degenerative changes left shoulder joint with prominent inferior acromial spur.
[2022-03-29 10:40] VITALS: BP 153/102; PULSE 93; RESP 18; TEMP 36.4; O2SAT 95; BMI 24.3
[2022-03-29 11:06] VITALS: RESP 14; O2SAT 97
[2022-03-29] MEDS: morphine 4 mg/mL SDV 1 mL IM (11:06)
--- NOTE | 2022-03-29 11:11 | ED_ITS ---
HPI - Extremity Problem General: Chief complaint: Extremity Injury, Upper Stated complaint: left shoulder pain Time Seen by Provider: 03/29/22 10:33 History of Present Illness: Patient is a 76-year-old male comes to the ED with left shoulder pain. Patient said he has been dealing with this left shoulder pain for approximately 5 to 6 months now. He has been diagnosed with rotator cuff tear and left shoulder in 3 months ago he states that a provider in [place] gave him a steroid shot in his left shoulder and it helped his shoulder pain for about 3 months. Denies any repeat injury, fall or trauma to cause acute pain. Patient has a job where he does a lot of heavy lifting and states that his left shoulder pain is [id number] from his job. He rates his pain a 9 out of 10 and its located in the anterior aspect of his left shoulder and radiates down his arm. And he movement or range of motion in left shoulder causes worsening pain. Associated symptoms: Deny chest pain, fever(s) or rash Review of Systems Const: Denies: fever(s), chills or fatigue Eyes: Denies: change in vision or eye discomfort ENMT: Denies: throat pain, odynophagia, nasal discharge or nasal congestion Card: Denies: chest pain, palpitations, edema, swelling of feet/ankles, dyspnea on exertion or orthopnea Resp: Denies: dyspnea, productive cough or non-productive cough GI: Denies: abdominal pain, nausea, vomiting, diarrhea, constipation or hematochezia : Denies: flank pain, difficulty urinating, dysuria or hematuria Musc: Reports: extremity pain (left shoulder pain) and limited range of motion (Left shoulder); Denies: neck pain, back pain or extremity swelling Skin/Breast: Denies: rash or new lesions Neuro: Denies: headache(s), numbness in extremities or weakness in extremities PFSH ED PFSH: Medical History Atrial fibrillation Bradycardia COPD (chronic obstructive pulmonary disease) Diverticulosis Gastritis H/O: GI bleed Hypersomnia Poor dentition Smoking addiction Surgical History H/O wrist surgery Right --nerve injury following compression injury Family History Mother CHF (congestive heart failure) GI bleeding Father CHF (congestive heart failure) Other COPD (chronic obstructive pulmonary disease) Social History Smoking and tobacco status: current every day smoker cigarettes Packs smoked per day: 2 Years cigarettes smoked: 60 Alcohol intake: former Year of sobriety/quit date alcohol: 2016 Lives independently: Yes Current occupational status: employed Physical Exam Const: COMMON NORMALS: patient oriented x3 HENMT: COMMON NORMALS: normocephalic HEAD & SCALP: normocephalic MOUTH: Normal oral and palatal mucosa present THROAT: posterior oropharynx normal and uvula midline Neck/C-Spine: COMMON NORMALS: supple GENERAL: Yes normal visual inspection Resp: COMMON NORMALS: normal respiratory effort, No retractions, No use of accessory muscles and clear to auscultation bilaterally AUSCULTATION: clear to auscultation bilaterally Cardio: COMMON NORMALS: regular rate, regular rhythm, S1 normal heart sound present, S2 normal heart sound present, No gallops present (Cardio), No clicks present (Cardio), No murmurs present (Cardio) and Peripheral pulses 2+ throughout RATE: regular rate RHYTHM: regular rhythm HEART SOUNDS: S1 normal heart sound present and S2 normal heart sound present PERIPHERAL PU LSES: Peripheral pulses 2+ throughout GI: COMMON NORMALS: Normal to inspection, nondistended, normoactive bowel sounds present, Soft to palpation, non-tender and no masses PALPATION: Yes Soft to palpation : COMMON NORMALS: Yes no CVA tenderness BLADDER/KIDNEY EXAM: Yes no CVA tenderness Back/Pelvis: COMMON NORMALS: no CVA tenderness Extremity: NARRATIVE EXTREMITY EXAM: Left shoulder?patient has AC joint tenderness. No visible deformity or swelling noted. Limited range of motion due to pain. Neurovascular intact distally. Neuro: COMMON NORMALS: patient oriented x3 GAIT: Yes Normal gait present Skin: GENERAL SKIN EXAM: dry skin Course Vital Signs: Vital signs: Vital Signs Temperature 97.5 F L 03/29/22 10:40 Pulse Rate 93 03/29/22 10:40 Respiratory Rate 14 03/29/22 12:10 Blood Pressure 153/102 03/29/22 10:40 Pulse Oximetry 92 03/29/22 12:10 Oxygen Delivery Me thod 03/29/22 10:40 MDM - Extremity (Nontraumatic) Medical Decision Making Patient is a 76-year-old male comes to the ED with left shoulder pain. Patient said he has been dealing with this left shoulder pain for approximately 5 to 6 months now. He has been diagnosed with rotator cuff tear and left shoulder in 3 months ago he states that a provider in [place] gave him a steroid shot in his left shoulder and it helped his shoulder pain for about 3 months. Denies any repeat injury, fall or trauma to cause acute pain. Patient has a job where he does a lot of heavy lifting and states that his left shoulder pain is [id number] from his job. Vitals are stable. Exam of left shoulder shows AC joint tenderness. Limited range of motion due to pain. Neurovascular tact distally. X-ray of left shoulder showed moderate degenerative changes of left shoulder joint with prominent inferior acromial spur. I placed an order with case management for patient referred to Ortho for follow-up. Return to ED precautions. Patient was placed in a shoulder sling and discharged home with a prescription for pain med and steroid. Lab Data Radiology Impressions Shoulder X-Ray 03/29/22 10:37 IMPRESSION: Moderate degenerative changes left shoulder joint with prominent inferior acromial spur. 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, left shoulder Condition: Stable Prescriptions: New prednisone 20 mg tablet 20 mg PO BID 5 Days Qty: 10 0RF No Action Eliquis 5 mg tablet 5 mg PO BID Qty: 180 3RF metoprolol succinate 25 mg tablet extended release 24 hr 12.5 mg PO DAILY Qty: 45 3RF Discharge Orders: Discharge ED (Routine); Ordered 03/29/22 Ordered By: Buddy Brown Referrals: mEy Kenney FNP [Primary Care Provider] - Discharge Diet: Regular Discharge Activity: Limit activity as instructed Patient Instructions: Osteoarthritis (DC), Shoulder Pain (ED) Activity Restrictions/Additional Instructions: Follow-up with medical provider as directed. Case management should be contacting you in the next several days to set up an appointment with Ortho for follow-up and further treatment on left shoulder pain. Wear left shoulder sling for comfort and to help with symptoms until seen by orthopedic doctor. Take medications as prescribed. Return to the ER or your medical provider if condition worsens. Please read and understand discharge instructions. Thank you for choosing [facility] for your healthcare needs today. Please realize this is an emergency room and that we are providing you with a medical screening exam and this may not be complete and all inclusive of all the testing and or work up that you may need to determine your ailment or severity of your illness. It is very important that you follow up as instructed or that you return to the Emergency Department should you have concerns or if your condition changes or worsens in any way. Coding Level of Care Code ED Litigation Attorney for Jimmy Zarate Exam Comprehensive
[2022-03-29 12:10] VITALS: RESP 14; O2SAT 92
[2022-03-29] MEDS: oxyCODONE-APAP 5-325 mg Tablet 1 TAB PO (12:10)
--- NOTE | 2022-03-30 10:13 | DCPLANNER ---
Addendum entered by Jacinta Carr 04/30/22 07:46: atient had a follow up appointment scheduled with ortho - patient did attend appointment. Addendum entered by Jacinta Carr 04/02/22 14:33: Patient has a follow up appointment scheduled for Sunday, April 03, 2022 at 10:[address] Hathaway at ortho. Clinic will call patient with appointment information. Original Note: manager sales support had message to schedule a follow up appointment for patient with ortho. manager sales support sent patients information to the front office staff at ortho. Patients information will be printed and reviewed. Clinic will call patient with appointment information.
== END 2022-03-29 12:54 | disposition home or self-care (01) ==
PROVIDERS: Emergency Provider Physician Assistant; PCP Nurse Practitioner Family
DX: M19.012 Primary osteoarthritis, left shoulder (principal); M75.82 Other shoulder lesions, left shoulder; Z79.01 Long term (current) use of anticoagulants; F17.210 Nicotine dependence, cigarettes, uncomplicated; J44.9 Chronic obstructive pulmonary disease, unspecified
CPT/HCPCS: 73030; 96372; 99284; J2270; J2930

== ENCOUNTER 2022-04-02 12:58 | Emergency (ER) | payer MEDICARE, SELFPAY ==
[2022-04-02 13:24] VITALS: BP 141/77; PULSE 100; RESP 18; TEMP 36.7; O2SAT 94; BMI 24.3
--- NOTE | 2022-04-02 13:35 | W.ED.EXTPRO ---
HPI - Extremity Problem General: Chief complaint: Extremity Injury, Upper Stated complaint: left arm pain Time Seen by Provider: 04/02/22 13:29 History of Present Illness: Patient is a 76-year-old male who comes to the ED with left arm pain. Patient was seen here in the ED for same complaint back on March 29. Denies any other complaints or reinjury. He is still having pain in his left arm and is wanting pain medication refill. Associated symptoms: Deny chest pain, fever(s) or rash Review of Systems Const: Denies: fever(s), chills or fatigue Eyes: Denies: change in vision or eye discomfort ENMT: Denies: throat pain, odynophagia, nasal discharge or nasal congestion Card: Denies: chest pain, palpitations, edema, swelling of feet/ankles, dyspnea on exertion or orthopnea Resp: Denies: dyspnea, productive cough or non-productive cough GI: Denies: abdominal pain, nausea, vomiting, diarrhea, constipation or hematochezia : Denies: flank pain, difficulty urinating, dysuria or hematuria Musc: Reports: extremity pain (Left arm and shoulder); Denies: neck pain, back pain or extremity swelling Skin/Breast: Denies: rash or new lesions Neuro: Denies: headache(s), numbness in extremities or weakness in extremities PFSH ED PFSH: Medical History Atrial fibrillation Bradycardia COPD (chronic obstructive pulmonary disease) Diverticulosis Gastritis H/O: GI bleed Hypersomnia Poor dentition Smoking addiction Surgical History H/O wrist surgery Right --nerve injury following compression injury Family History Mother CHF (congestive heart failure) GI bleeding Father CHF (congestive heart failure) Other COPD (chronic obstructive pulmonary disease) Social History Smoking and tobacco status: current every day smoker cigarettes Packs smoked per day: 2 Years cigarettes smoked: 60 Alcohol intake: former Year of sobriety/quit date alcohol: 2016 Lives independently: Yes Current occupational status: employed Physical Exam Const: COMMON NORMALS: patient oriented x3 HENMT: COMMON NORMALS: normocephalic HEAD & SCALP: normocephalic MOUTH: Normal oral and palatal mucosa present THROAT: posterior oropharynx normal and uvula midline Neck/C-Spine: COMMON NORMALS: supple GENERAL: Yes normal visual inspection Resp: COMMON NORMALS: normal respiratory effort, No retractions, No use of accessory muscles and clear to auscultation bilaterally AUSCULTATION: clear to auscultation bilaterally Cardio: COMMON NORMALS: regular rate, regular rhythm, S1 normal heart sound present, S2 normal heart sound present, No gallops present (Cardio), No clicks present (Cardio), No murmurs present (Cardio) and Peripheral pulses 2+ throughout RATE: regular rate RHYTHM: regular rhythm HEART SOUNDS: S1 normal heart sound present and S2 normal heart sound present PERIPHERAL PULSES: Peripheral pulses 2+ throughout GI: COMMON NORMALS: Normal to inspection, nondistended, normoactive bowel sounds present, Soft to palpation, non-tender and no masses PALPATION: Yes Soft to palpation : COMMON NORMALS: Yes no CVA tenderness BLADDER/KIDNEY EXAM: Yes no CVA tenderness Back/Pelvis: COMMON NORMALS: no CVA tenderness Extremity: COMMON NORMALS: normal to inspection Neuro: COMMON NORMALS: patient oriented x3 GAIT: Yes Normal gait present Skin: GENERAL SKIN EXAM: dry skin Course Vital Signs: Vital signs: Vital Signs Temperature 98.0 F 04/02/22 13:24 Pulse Rate 97 04/02/22 14:26 Respiratory Rate 18 04/02/22 14:26 Blood Pressure 138/76 04/02/22 14:26 Pulse Oximetry 95 04/02/22 14:26 Oxygen Delivery Me thod 04/02/22 13:24 MDM - Extremity (Nontraumatic) Medical Decision Making Patient is a 76-year-old male who comes to the ED with left arm pain. Patient was seen here in the ED for same complaint back on March 29. Denies any other complaints or reinjury. He is still having pain in his left arm and is wanting pain medication refill. Vitals are stable. Patient was given dose of IM morphine here in the ED. He has an appointment with Ortho tomorrow April 03. He was sent home with a prescription for couple hydrocodone to help with pain. Discharge Plan Discharge Patient Disposition: Home Clinical Impression: Encounter for medication refill Condition: Stable Prescriptions: No Action Eliquis 5 mg tablet 5 mg PO BID Qty: 180 3RF metoprolol succinate 25 mg tablet extended release 24 hr 12.5 mg PO DAILY Qty: 45 3RF hydrocodone-acetaminophen 5-325 mg tablet 1 tab PO Q4H PRN (Reason: pain) 7 Days Qty: 30 0RF Discharge Orders: Discharge ED (Routine); Ordered 04/02/22 Ordered By: Buddy Brown Referrals: Emy Kenney FNP [Primary Care Provider] - Discharge Diet: Regular Discharge Activity: Increase activity as tolerated Patient Instructions: Opioid Safety (ED) Activity Restrictions/Additional Instructions: Follow-up with medical provider as directed. You have a scheduled appointment with Dr. Hathaway tomorrow April 03 at 1045 to have left shoulder and arm pain evaluated. Take medications as prescribed. Return to the ER or your medical provider if condition worsens. Please read and understand discharge instructions. Thank you for choosing [facility] for your healthcare needs today. Please realize this is an emergency room and that we are providing you with a medical screening exam and this may not be complete and all inclusive of all the testing and or work up that you may need to determine your ailment or severity of your illness. It is very important that you follow up as instructed or that you return to the Emergency Department should you have concerns or if your condition changes or worsens in any way. Coding Level of Care Code ED Bag Sewer for Jimmy Zarate Exam Comprehensive
[2022-04-02 14:26] VITALS: BP 138/76; PULSE 97; RESP 18; O2SAT 95
== END 2022-04-02 14:27 | disposition home or self-care (01) ==
PROVIDERS: Emergency Provider Physician Assistant; PCP Nurse Practitioner Family
DX: M79.602 Pain in left arm (principal); Z76.0 Encounter for issue of repeat prescription
CPT/HCPCS: 99284

== ENCOUNTER → 2022-04-03 10:04 | Outpatient (BNVA) | payer MEDICARE, SELFPAY | PROVIDERS: PCP Nurse Practitioner Family; Referring Provider Physician Assistant; Visit Provider Orthopaedic Surgery | DX: M25.512 Pain in left shoulder (principal) | CPT/HCPCS: 99204 ==

== ENCOUNTER 2022-05-11 12:34 | Outpatient (CLI) | payer MEDICARE, SELFPAY ==
--- NOTE | 2022-05-11 13:00 | MR_ITS ---
WS: [id number] EXAMINATION: MR shoulder LT wo con* [id number] ORDER DATE: 05/11/2022 12:42 PM COMPARISON: None. HISTORY: shoulder pain CONTRAST: None. TECHNIQUE: Axial T2 STAR, coronal proton density fat sat, sagittal T2 fat sat, sagittal proton densit y fat sat, axial proton density fat sat, coronal T2 fat sat, and coronal T1 performed. After contrast , axial T1 fat sat, coronal T1 fat sat, and sagittal T1 fat sat were performed. FINDINGS: Some images degraded by patient motion. Moderate to advanced degenerative arthritis at the AC joint with mild downsloping acromion. Narrowing of the subacromial space. Hypertrophic spurring along the medial humeral head and neck. Advanced deg enerative narrowing at the glenohumeral joint. Small amount of subacromial/subdeltoid fluid. High-grade complete tear of the supraspinatus with retraction to the level of the glenohumeral joint. Distal infraspinatus appears intact. Normal teres minor. Diminutive subscapularis tendon with chronic appearing partial intrasubstance tea r.Diminutive biceps tendon visualized within the bicipital groove. Intra-articular biceps appears int act. MR/MR shoulder LT wo con* [id number] IMPRESSION: Some images degraded by patient motion. 1. Advanced degenerative arthritis AC joint with subacromial/subdeltoid fluid. Narrowing of the subacromial space. 2. Advanced narrowing at the glenohumeral joint with hypertrophic changes. 3. High-grade complete tear of the distal supraspinatus with tendon retraction to the level of the glenohumeral joint. 4. Tiny subscapularis tendon distally with evidence of chronic appearing parti al intrasubstance tear. 5. Tiny biceps tendon within the bicipital groove. Intra-articular biceps tend on is visualized. 6. Cystic degenerative changes involving the greater tuberosity.
== END 2022-05-11 12:35 | disposition home or self-care (01) ==
LOC: RAD 12:36
PROVIDERS: PCP Nurse Practitioner Family; Visit Provider Orthopaedic Surgery
DX: M19.012 Primary osteoarthritis, left shoulder (principal); M75.122 Complete rotator cuff tear or rupture of left shoulder, not specified as traumatic
CPT/HCPCS: 73221

== ENCOUNTER → 2022-05-20 14:06 | Outpatient (BNVA) | payer MEDICARE, SELFPAY | PROVIDERS: PCP Nurse Practitioner Family; Visit Provider Nurse Practitioner Family | DX: I48.91 Unspecified atrial fibrillation (principal); R00.1 Bradycardia, unspecified; F17.210 Nicotine dependence, cigarettes, uncomplicated; Z79.01 Long term (current) use of anticoagulants | CPT/HCPCS: 93005; 99214 ==

== ENCOUNTER → 2022-09-14 12:38 | Outpatient (BNVA) | payer MEDICARE, SELFPAY | PROVIDERS: PCP Nurse Practitioner Family; Visit Provider Internal Medicine Cardiovascular Disease | DX: I48.91 Unspecified atrial fibrillation (principal); R00.1 Bradycardia, unspecified; F17.210 Nicotine dependence, cigarettes, uncomplicated; Z79.01 Long term (current) use of anticoagulants | CPT/HCPCS: 99213 ==

== ENCOUNTER → 2023-03-03 13:59 | Outpatient (BNVA) | payer MEDICARE, SELFPAY | PROVIDERS: PCP Nurse Practitioner Family; Visit Provider Nurse Practitioner Family | DX: I48.21 Permanent atrial fibrillation (principal); F17.210 Nicotine dependence, cigarettes, uncomplicated; Z79.01 Long term (current) use of anticoagulants | CPT/HCPCS: 99213 ==

== ENCOUNTER → 2023-11-02 15:41 | Outpatient (BNVA) | payer MEDICARE, SELFPAY | PROVIDERS: PCP Nurse Practitioner Family; Visit Provider Internal Medicine | DX: I48.21 Permanent atrial fibrillation (principal); R00.1 Bradycardia, unspecified; F17.210 Nicotine dependence, cigarettes, uncomplicated | CPT/HCPCS: 99214 ==

== ENCOUNTER → 2024-10-18 13:34 | Outpatient (BNVA) | payer MEDICARE, SELFPAY | PROVIDERS: PCP Nurse Practitioner Family; Visit Provider Internal Medicine | DX: I48.21 Permanent atrial fibrillation (principal); R00.1 Bradycardia, unspecified; F17.210 Nicotine dependence, cigarettes, uncomplicated; Z79.01 Long term (current) use of anticoagulants | CPT/HCPCS: 99214 ==